=== PATIENT | male | born 1935 | race Caucasian/White ===

== ENCOUNTER 2017-01-02 23:07 | Inpatient (IN) ==
[2017-01-02] MEDS ORDERED: 0.9 % Sodium Chloride 1,000 ML IVC ONE (23:36)
--- NOTE | 2017-01-02 23:45 | Emergency Department Note ---
Disposition Clinical Impression: Lower gastrointestinal hemorrhage Anemia Qualifiers: Anemia type: other cause Other causes of anemia: other cause, not classified Qualified Code(s): D64.89 - Other specified anemias Disposition: Admitted As Inpatient Condition: Good Time of Disposition: 00:56 General Adult HPI - General Chief complaint: ED GI Bleed Stated complaint: Rectal Bleeding Time Seen by Provider: 01/02/17 23:21 Source: patient Limitations: no limitations Nursing Notes Reviewed: Yes Vital Signs Reviewed: Yes - History of Present Illness HPI Narrative: A recent history of a polyp removal at [facility] with Dr. Pretty. States a couple days after that he started having bright red blood per his rectum. He was then admitted to [facility] for 5 days. He was released this morning with no GI bleeding for the past 2 days. He took a nap whenever he woke up from his nap he was the bathroom and had bright red blood coming out of his rectum. Please see past several blood clots that they describe built like "beef liver." Pain Scale: 0 - Related Data Allergies Allergy/AdvReac Type Severity Reaction Status Date / Time Tetracycline AdvReac Hives Verified 01/03/17 03:06 All systems ED: reviewed and negative except as stated. Constitutional: Reports: weakness (When he stands up and tries to walk.). Denies: fever, chills Cardiovascular: Denies: chest pain, palpitations, dyspnea on exertion, edema, syncope Respiratory: Denies: cough, dyspnea, wheezes Gastrointestinal: Reports: hematochezia. Denies: abdominal pain, nausea, vomiting, diarrhea, hematemesis, melena Genitourinary: Denies: urgency, dysuria, frequency, hematuria Musculoskeletal: Denies: back pain, neck pain, arthralgia, myalgia Integumentary: Denies: rash, abrasion Neurological: Reports: weakness. Denies: headache, numbness, confusion, abnormal gait Past Medical History - Past Medical History Medical history: Reports: atrial fibrillation, CHF, COPD, diabetes, renal disease Psychiatric history: Reports: no psych history - Social History Smoking Status: Never smoker Smokeless Tobacco Status: No Alcohol use: Reports: none Drug use: Reports: none Physical Exam - General Limitations: no limitations General appearance: alert, in no apparent distress - Head Head exam: atraumatic, normocephalic, normal inspection - Eye Eye exam: Present: normal appearance, PERRL, EOMI. Absent: scleral icterus - ENT ENT exam: normal exam, normal oropharynx, mucous membranes moist - Neck Neck exam: Present: normal inspection, full ROM, trachea midline. Absent: tenderness - Chest Chest inspection: Present: normal inspection, symmetric chest wall rise. Absent : tenderness - Respiratory Respiratory exam: Present: normal lung sounds bilaterally. Absent: respiratory distress - Cardiovascular Cardiovascular exam: Present: regular rate, irregular rhythm (History of A. fib. ), normal heart sounds - Abdominal Exam Abdominal exam: Present: soft, Non-Tender, normal bowel sounds. Absent: tenderness, distention, guarding, rebound, rigidity, organomegaly, Zavala's sign , Rovsing's sign, tenderness at McBurney's Point - Rectal Exam Land Conservation Specialist present during exam: Yes Rectal exam: Present: normal rectal tone, heme (+) stool, bloody stool. Absent : tenderness - Extremities Exam Extremities exam: Present: normal inspection, full ROM, normal capillary refill. Absent: tenderness, pedal edema - Back Exam Back exam: Present: normal inspection, full ROM. Absent: tenderness, CVA tenderness (R), CVA tenderness (L) - Neurological Exam Neurological exam: Present: alert, oriented X3, normal gait - Psychiatric Psychiatric exam: Present: normal affect, normal mood - Skin Skin exam: Present: warm, dry, intact, normal color. Absent: rash, diaphoresis , erythema Course Course Narrative: She has a recent history of a polyp removal at [facility]. States 1 week ago he started having bright red blood per his rectum he was seen at [facility]. He was admitted to the hospital for 5 days. states that last night and yesterday bleeding had stopped. He was released this morning. States that he had been laying around today with no problems. He states this evening he got up to go to the bathroom he noticed he had blood coming down his legs. The states that he is passing red clots that looked like "beef liver." He is feeling weak whenever he gets up. He has no exertional dyspnea. He denies any chest pain nausea vomiting diarrhea or abdominal pain. His abdomen is soft nontender on palpation. He is well appearing however looks tired. Urinating distress. We will get basic lab work, and I will do a fecal occult blood test. Will also give patient a fluid bolus. - Reevaluation(s) Reevaluation #1: I discussed at length with the patient and his that they need to be by the same surgeon that did his initial surgery. They are very frustrated with [facility] and state they would like to stay here. I will discuss this with our surgeon sales applications engineer. Time: 00:16 Reevaluation #2: Dr. Pearson agreed to see the patient while he is here. Patient is an 8.7. The states that this morning his hemoglobin was 9. He did have bright red blood on rectal exam. He is resting comfortably in bed with no complaints at this time. We will patient to the hospital. - Consultations Consultation #1: Spoke with Dr Pearson. He agreed to have the Pt admitted to the medicine service and they could consult him. Time: 00:54 Vital Signs Temperature 95.6 F L 01/02/17 23:12 Pulse Rate 117 01/02/17 23:12 Respiratory Rate 22 01/02/17 23:12 Blood Pressure 127/71 01/02/17 23:12 O2 Sat by Pulse Oximetry 97 01/02/17 23:12 Temperature 98.2 F 01/03/17 03:05 Pulse Rate 85 01/03/17 03:05 Respiratory Rate 15 01/03/17 03:05 Blood Pressure 160/81 01/03/17 03:05 O2 Sat by Pulse Oximetry 100 01/03/17 03:05 Oxygen Delivery Oxygen Delivery Nasal Cannula Medical Decision Making - Medical Records Medical records reviewed: Yes I reviewed the patient's medical records. - Lab Data Lab results reviewed: Yes I reviewed the patient's lab results. Result diagrams: 01/02/17 23:50 01/02/17 23:50 Lab Results 01/02/17 01/02/17 01/02/17 Range/Units 23:50 23:50 23:50 WBC 11.6 H (4.3-11.1) K/mcL RBC 3.02 L (4.19-5.50) M/mcL Hgb 8.7 L (12.9-16.9) g/dL Hct 27.7 L (37.5-50.1) % MCV 91.7 (83.0-100.0) fL MCH 28.8 (28.0-33.3) pg MCHC 31.4 L (31.6-35.5) g/dL RDW 13.5 (11.5-14.5) % Plt Count 198 (140-400) K/mcL MPV 11.7 (9.4-12.4) fL Immature Gran % 0.8 (0-4) % Seg Neutrophils % 74.7 % Lymphocytes % 12.6 % Monocytes % 8.8 % Eosinophils % 2.6 % Basophils % 0.5 % Neutrophils # 8.7 (1.6-8.9) K/mcL Lymphocytes # 1.5 (0.6-4.6) K/mcL Monocytes # 1.0 (0.0-1.3) K/mcL Eosinophils # 0.3 (0.0-0.6) K/mcL Basophils # 0.1 (0.0-0.2) K/mcL Nucleated RBCs/100 WBC 0.2 H (0) /100 WBC PT 12.6 H (9.4-12.1) Seconds INR 1.2 APTT 25.3 L (26.0-36.0) Seconds Sodium 141 (136-145) mEq/L Potassium 4.4 (3.5-4.5) mEq/L Chloride 108 (98-109) mEq/L Carbon Dioxide 26 (19-29) mEq/L BUN 23 (8-26) mg/dL Creatinine 1.42 H (0.72-1.25) mg/dL Est GFR ( Amer) 58 L (> 60) Est GFR (Non-Af Amer) 48 L (> 60) BUN/Creatinine Ratio 16 (6-26) Glucose 185 H (70-99) mg/dL Calculated Osmolality 300 (280-300) Calcium 8.6 (8.6-10.8) mg/dL Total Bilirubin 0.4 (0.2-1.2) mg/dL AST 16 (5-34) Units/L ALT 13 (0-55) Units/L Alkaline Phosphatase 59 (38-126) Units/L Serum Total Protein 6.0 (6.0-8.3) g/dL Albumin 3.1 L (3.5-5.0) g/dL Globulin 2.9 (2.4-3.5) g/dL Albumin/Globulin Ratio 1.1 (1.1-2.2) Stool Occult Blood (Negative) Blood Type Antibody Screen 01/02/17 01/03/17 Range/Units 23:50 00:12 WBC (4.3-11.1) K/mcL RBC (4.19-5.50) M/mcL Hgb (12.9-16.9) g/dL Hct (37.5-50.1) % MCV (83.0-100.0) fL MCH (28.0-33.3) pg MCHC (31.6-35.5) g/dL RDW (11.5-14.5) % Plt Count (140-400) K/mcL MPV (9.4-12.4) fL Immature Gran % (0-4) % Seg Neutrophils % % Lymphocytes % % Monocytes % % Eosinophils % % Basophils % % Neutrophils # (1.6-8.9) K/mcL Lymphocytes # (0.6-4.6) K/mcL Monocytes # (0.0-1.3) K/mcL Eosinophils # (0.0-0.6) K/mcL Basophils # (0.0-0.2) K/mcL Nucleated RBCs/100 WBC (0) /100 WBC PT (9.4-12.1) Seconds INR APTT (26.0-36.0) Seconds Sodium (136-145) mEq/L Potassium (3.5-4.5) mEq/L Chloride (98-109) mEq/L Carbon Dioxide (19-29) mEq/L BUN (8-26) mg/dL Creatinine (0.72-1.25) mg/dL Est GFR ( Amer) (> 60) Est GFR (Non-Af Amer) (> 60) BUN/Creatinine Ratio (6-26) Glucose (70-99) mg/dL Calculated Osmolality (280-300) Calcium (8.6-10.8) mg/dL Total Bilirubin (0.2-1.2) mg/dL AST (5-34) Units/L ALT (0-55) Units/L Alkaline Phosphatase (38-126) Units/L Serum Total Protein (6.0-8.3) g/dL Albumin (3.5-5.0) g/dL Globulin (2.4-3.5) g/dL Albumin/Globulin Ratio (1.1-2.2) Stool Occult Blood Positive A (Negative) Blood Type O POSITIVE Antibody Screen NEGATIVE - EKG Data EKG #1 EKG attestation: Yes I reviewed and interpreted this EKG. EKG results narrative: Atrial fibrillation at a rate of 91. Urine esterase is 77. QT is 368. No signs of acute ischemia. No previous EKG to compare to.
--- NOTE | 2017-01-02 23:49 | Emergency Department Note ---
START Narrative - START START: For this encounter, I have reviewed the resident, SOCIAL WORKER MASTERS, or PA documentation, treatment plan, and medical decision making; and I have had face to face time with this patient. 81 yo male presents with rectal bleeding. Recent polyp removal at [facility] one month ago. Returned five days ago for rectal bleeding and stayed five days. pt states he was discharged earlier in the day. Patient states he developed diarrhea with bright red blood per rectum which covered his bed, bathroom, bedroom floor prior to arrival. Patient states that he felt lightheaded prior to arrival. On rectal exam the patient has hematochezia. The patient be transferred to [facility] for further care and evaluation as this is where he had his surgery performed. Patient adamantly refused and did not want to be transferred. He wished to remain at [facility] for continuation of his care. Patient was admitted to the hospitalist after speaking with Dr. Pearson.
[2017-01-02 23:56] LABS: Basophils # 0.1 K/mcL (0.0-0.2); Basophils % 0.5 %; Eosinophils # 0.3 K/mcL (0.0-0.6); Eosinophils % 2.6 %; Hematocrit 27.7 % (37.5-50.1); Hemoglobin 8.7 g/dL (12.9-16.9); Immature Granulocytes % 0.8 % (0-4); Lymphocytes # 1.5 K/mcL (0.6-4.6); Lymphocytes % 12.6 %; Mean Corpuscular HGB Conc 31.4 g/dL (31.6-35.5); Mean Corpuscular Hemoglobin 28.8 pg (28.0-33.3); Mean Corpuscular Volume 91.7 fL (83.0-100.0); Mean Platelet Volume 11.7 fL (9.4-12.4); Monocytes % 8.8 %; Neutrophils # 8.7 K/mcL (1.6-8.9); Nucleated Red Blood Cells 0.2 /100 WBC (0); Platelet Count 198 K/mcL (140-400); Red Blood Count 3.02 M/mcL (4.19-5.50); Red Cell Distribution Width 13.5 % (11.5-14.5); Segmented Neutrophils % 74.7 %
[2017-01-03 00:14] LABS: Albumin 3.1 g/dL (3.5-5.0); Albumin/Globulin Ratio 1.1 (1.1-2.2); Bilirubin,Total 0.4 mg/dL (0.2-1.2); Calcium 8.6 mg/dL (8.6-10.8); Globulin 2.9 g/dL (2.4-3.5); Potassium 4.4 mEq/L (3.5-4.5)
[2017-01-03 00:16] LABS: INR 1.2; Prothrombin Time 12.6 Seconds (9.4-12.1)
[2017-01-03 00:19] LABS: Activated Partial Thrombo Time 25.3 Seconds (26.0-36.0)
[2017-01-03 04:50] LABS: Bilirubin,Urine Negative (Negative); Blood,Urine Negative (Negative); Clarity,Urine Cloudy (Clear); Color,Urine Yellow (Yellow); Glucose,Urine (UA) Normal (Normal); Ketones,Urine Negative (Negative); Leukocyte Esterase,Urine Moderate (Negative); Nitrite,Urine Negative (Negative); Protein,Urine Negative (Neg-Trace); Specific Gravity,Urine 1.012 (1.010-1.025); Urobilinogen,Urine Normal (Normal)
[2017-01-03 04:53] LABS: Bacteria,Urine Many per hpf (None-Few); Hyaline Casts,Urine None Seen per lpf (None-Few); RBC,Urine 0-3 per hpf (0-3); Squamous Epithelial Cell,Urine Moderate per lpf (None-Few); WBC,Urine 50-100 per hpf (0-3)
[2017-01-03] MEDS ORDERED: Naloxone 0.4 MG/ML INJ IVP PRN (08:06)
[2017-01-03] MEDS ORDERED: Ondansetron 4 MG/2 ML VIAL IVP PRN (08:06)
[2017-01-03] MEDS ORDERED: Dextrose Gel 15 GM PO PRN ×4 (08:13→18:33)
[2017-01-03] MEDS ORDERED: D5% in Water 1,000 ML IV PRN ×2 (08:13→18:33)
[2017-01-03] MEDS ORDERED: *HR* Dextrose 50 % in Water (Syg) 50 ML SYRINGE IVP PRN ×2 (08:13→18:33)
[2017-01-03] MEDS: 0.9 % Sodium Chloride 1,000 ML IVC SCH ×2 (08:55→23:00)
[2017-01-03] MEDS: Pantoprazole 40 MG VIAL IVP SCH ×2 (08:55→17:35)
[2017-01-03] MEDS: *HR* Morphine 2 MG/ML SYRINGE IVP PRN ×2 (09:03→18:39)
[2017-01-03 09:08] LABS: Basophils # 0.1 K/mcL (0.0-0.2); Basophils % 0.5 %; Eosinophils # 0.2 K/mcL (0.0-0.6); Hematocrit 24.6 % (37.5-50.1); Hemoglobin 7.8 g/dL (12.9-16.9); Immature Granulocytes % 0.7 % (0-4); Lymphocytes # 2.3 K/mcL (0.6-4.6); Lymphocytes % 23.2 %; Mean Corpuscular HGB Conc 31.7 g/dL (31.6-35.5); Mean Corpuscular Hemoglobin 29.2 pg (28.0-33.3); Mean Corpuscular Volume 92.1 fL (83.0-100.0); Mean Platelet Volume 12.4 fL (9.4-12.4); Monocytes # 0.8 K/mcL (0.0-1.3); Monocytes % 8.3 %; Neutrophils # 6.5 K/mcL (1.6-8.9); Nucleated Red Blood Cells 0.2 /100 WBC (0); Platelet Count 161 K/mcL (140-400); Red Blood Count 2.67 M/mcL (4.19-5.50); Red Cell Distribution Width 13.8 % (11.5-14.5); Segmented Neutrophils % 65.3 %
[2017-01-03 09:12] LABS: Alanine Aminotransferase 12 Units/L (0-55); Albumin 2.8 g/dL (3.5-5.0); Albumin/Globulin Ratio 1.1 (1.1-2.2); Alkaline Phosphatase 58 Units/L (38-126); Aspartate Amino Transferase 13 Units/L (5-34); BUN/Creatinine Ratio 17 (6-26); Bilirubin,Total 0.5 mg/dL (0.2-1.2); Blood Urea Nitrogen 21 mg/dL (8-26); Calcium 7.8 mg/dL (8.6-10.8); Carbon Dioxide 27 mEq/L (19-29); Chloride 109 mEq/L (98-109); Globulin 2.6 g/dL (2.4-3.5); Glucose 131 mg/dL (70-99); Osmolality,Calculated 301 (280-300); Potassium 3.8 mEq/L (3.5-4.5); Sodium 143 mEq/L (136-145); Total Protein 5.4 g/dL (6.0-8.3); eGFR For African Americans > 60 (> 60); eGFR For Non-African Americans 55 (> 60)
[2017-01-03 09:39] LABS: % Iron Saturation 8 % (20-55); Iron 20 mcg/dL (65-175); Transferrin 187 mg/dL (174-364)
--- NOTE | 2017-01-03 10:13 | General Surgery Consult Note ---
Date of Encounter: 01/03/17 Time of Encounter: 10:00 Assessment and Plan (1) Lower gastrointestinal hemorrhage Current Visit: Yes Status: Acute Bleeding scan Obtain records from [facility] IV fluids and resuscitation Continue to hold coumadin Monitor Hgb/Hct (2) Acute blood loss anemia Current Visit: Yes Status: Acute Monitor Hgb/Hct History of Present Illness Consult date: 01/03/17 Reason for consult: other (rectal bleeding) Requesting physician: Paul Hardy History of present illness: Mr. Haynes is a very pleasant 81 year old male who reported to the ED last night with complaints of rectal bleeding. He states that he is s/p a colonoscopy with polypectomy with Dr. Pretty on 12/16/16 at [facility]. He remained off of his coumadin for 13 days (takes for atrial fibrillation). He states that when he restarted his coumadin he began to have rectal bleeding. He presented back to [facility] with compaints of large amounts of bright red blood per rectum. He was given FFP for revearsal of coumadin. He was admitted there for the past 5-6 days. He states that the bleeding did stop and that he did have a normal, brown bowel movement yesterday morning. He was discharge to home yesterday morning from [facility]. He states that shortly after returning home, he began to have large amounts of rectal bleeding (bright red). He admits to feeling light headed and dizzy. Denies any syncopal episodes. Denies any shortness of breath of chest pains. He states that he has had multiple colonoscopies over the past 4 years for a recurrent polyp in the colon. We have been asked to see and evaluate the patient for endoscopy evaluation. 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), CHF, COPD, coronary artery disease, diabetes, GERD, hypertension, renal disease (stage 3), thyroid disease (hypothyroidism) Psychiatric history: no psych history - Past Surgical History Surgical History: cataract, other (colonoscopy (last 12/16/16), multiple over the past 4 years; cyst removed from head and groin) - Social History Smoking Status: Never smoker Smokeless Tobacco Status: No Alcohol use: none Drug use: none Current living situation: Home - Independent Activity Level: Independent ambulation - Family History Mother Living Status: Age at : 70 Hx Family Cardiac Disorders: Yes Brother Hx Family Cancer: Yes Father Living Status: Age at : 89 Hx Family Cancer: Yes Medications and Allergies Allopurinol [Zyloprim 300 MG] 300 mg PO DAILY 01/03/17 [History] Digoxin [Lanoxin] 0.125 mg PO QMWF 01/03/17 [History] Docusate [Colace] 100 mg PO BID 01/03/17 [History] Ezetimibe 10 mg PO DAILY 01/03/17 [History] Finasteride [Proscar] 5 mg PO DAILY 01/03/17 [History] Furosemide [Lasix] 40 mg PO BID 01/03/17 [History] Insulin ASPART [Novolog Flexpen] 12 unit SQ TID 01/03/17 [History] Insulin DETEMIR [Levemir Flextouch] 100 unit SQ QAM 01/03/17 [History] Insulin DETEMIR [Levemir] 0 unit SQ HS 01/03/17 [History] Latanoprost [Xalatan] 2.5 ml BOTH EYES HS 01/03/17 [History] Levothyroxine [Synthroid] 150 mcg PO DAILY 01/03/17 [History] Metolazone 2.5 mg PO QAM 01/03/17 [History] Metoprolol [Lopressor] 50 mg PO BID 01/03/17 [History] OxyCODONE/APAP 5/325 [Percocet 5/325 MG] 1 tab PO Q4HR PRN 01/03/17 [History] Potassium Chloride [K-Tab ER] 40 meq PO TID 01/03/17 [History] Tamsulosin [Flomax] 0.4 mg PO HS 01/03/17 [History] Valsartan [Diovan] 320 mg PO DAILY 01/03/17 [History] Allergies Tetracycline Adverse Reaction (Verified 01/03/17 03:06) Hives Review of Systems All systems PM: reviewed and no additional remarkable complaints except as stated (in the HPI) All systems PM: A 10-system review of systems was performed and is negative for pertinent findings except as documented above in the HPI. General Surgery Exam Initial Vital Signs Temp Pulse Resp BP Pulse Ox 95.6 F L 117 22 127/71 97 01/02/17 23:12 01/02/17 23:12 01/02/17 23:12 01/02/17 23:12 01/02/17 23:12 - General physical appearance well developed, well nourished, no distress, no pain - Eyes normal ocular movement - ENT normal mucosa, atraumatic, normocephalic - Neck trachea midline - Respiratory normal expansion, normal respiratory effort, clear to auscultation - Cardiovascular Cardiovascular exam: Present: irregular rhythm (atrial fibrillation) - Abdomen Abdomen general surgery: Present: bowel sounds present, soft, non tender - Integumentary Integumentary general surgery: Present: warm and dry - Neurologic Present: CN 2-12 grossly intact - Musculoskeletal Present: normal gait, normal posture - Psychiatric Psychiatric general surgery: Present: appropriate, oriented to person, oriented to place, oriented to time, speech is normal, memory intact Exam Initial Vital Signs Temp Pulse Resp BP Pulse Ox 95.6 F L 117 22 127/71 97 01/02/17 23:12 01/02/17 23:12 01/02/17 23:12 01/02/17 23:12 01/02/17 23:12 Results - Labs 01/03/17 08:29 01/03/17 08:29 Abnormal lab results RBC 2.67 M/mcL (4.19-5.50) L 01/03/17 08:29 Hgb 7.8 g/dL (12.9-16.9) L 01/03/17 08:29 Hct 24.6 % (37.5-50.1) L 01/03/17 08:29 Nucleated RBCs/100 WBC 0.2 /100 WBC (0) H 01/03/17 08:29 PT 12.6 Seconds (9.4-12.1) H 01/02/17 23:50 APTT 25.3 Seconds (26.0-36.0) L 01/02/17 23:50 Creatinine 1.26 mg/dL (0.72-1.25) H 01/03/17 08:29 Est GFR (Non-Af Amer) 55 (> 60) L 01/03/17 08:29 Glucose 131 mg/dL (70-99) H 01/03/17 08:29 Calculated Osmolality 301 (280-300) H 01/03/17 08:29 Calcium 7.8 mg/dL (8.6-10.8) L 01/03/17 08:29 Iron 20 mcg/dL (65-175) L 01/03/17 08:29 % Saturation 8 % (20-55) L 01/03/17 08:29 Serum Total Protein 5.4 g/dL (6.0-8.3) L 01/03/17 08:29 Albumin 2.8 g/dL (3.5-5.0) L 01/03/17 08:29 Urine Clarity Cloudy (Clear) A 01/03/17 04:41 Ur Leukocyte Esterase Moderate (Negative) H 01/03/17 04:41 Urine Microscopic WBC 50-100 per hpf (0-3) H 01/03/17 04:41 Ur Squamous Epith Cells Moderate per lpf (None-Few) H 01/03/17 04:41 Urine Bacteria Many per hpf (None-Few) H 01/03/17 04:41 Ur Culture Indicated? YES (NO) A 01/03/17 04:41 Stool Occult Blood Positive (Negative) A 01/03/17 00:12 Diabetes panel 01/03/17 Range/Units 08:29 Sodium 143 (136-145) mEq/L Potassium 3.8 (3.5-4.5) mEq/L Chloride 109 (98-109) mEq/L Carbon Dioxide 27 (19-29) mEq/L BUN 21 (8-26) mg/dL Creatinine 1.26 H (0.72-1.25) mg/dL Glucose 131 H (70-99) mg/dL Calcium 7.8 L (8.6-10.8) mg/dL AST 13 (5-34) Units/L ALT 12 (0-55) Units/L Alkaline Phosphatase 58 (38-126) Units/L Albumin 2.8 L (3.5-5.0) g/dL Calcium panel 01/03/17 Range/Units 08:29 Calcium 7.8 L (8.6-10.8) mg/dL Albumin 2.8 L (3.5-5.0) g/dL Pituitary panel 01/03/17 Range/Units 08:29 Sodium 143 (136-145) mEq/L Potassium 3.8 (3.5-4.5) mEq/L Chloride 109 (98-109) mEq/L Carbon Dioxide 27 (19-29) mEq/L BUN 21 (8-26) mg/dL Creatinine 1.26 H (0.72-1.25) mg/dL Glucose 131 H (70-99) mg/dL Calcium 7.8 L (8.6-10.8) mg/dL Adrenal panel 01/03/17 Range/Units 08:29 Sodium 143 (136-145) mEq/L Potassium 3.8 (3.5-4.5) mEq/L Chloride 109 (98-109) mEq/L Carbon Dioxide 27 (19-29) mEq/L BUN 21 (8-26) mg/dL Creatinine 1.26 H (0.72-1.25) mg/dL Glucose 131 H (70-99) mg/dL Calcium 7.8 L (8.6-10.8) mg/dL Total Bilirubin 0.5 (0.2-1.2) mg/dL AST 13 (5-34) Units/L ALT 12 (0-55) Units/L Alkaline Phosphatase 58 (38-126) Units/L Albumin 2.8 L (3.5-5.0) g/dL All other labs normal. Consult Discharge Plan - Plan Referrals: Major Gonsalves DO [Primary Care Provider] - - Attending Attestation I examined this patient and my medical decision-making was reviewed with the UNION LABORER/PA/Advanced Practice Nurse/Resident Physician. I agree with the documented findings, disposition and treatment plan as described except to the extent set forth below.
[2017-01-03 10:30] LABS: Ferritin 76 ng/ml (22-275)
[2017-01-03 14:41] LABS: Hemoglobin 7.8 g/dL (12.9-16.9)
[2017-01-03] MEDS: Insulin LISPRO 300 UNITS/3 ML VIAL SQ SCH ×2 (15:48→17:31)
--- NOTE | 2017-01-03 18:05 | Electrocardiograph Report ---
[place] [id number] Test Date: 2017-01-02 Pat Name: Marcos Haynes Department: 104 Room: 3A Gender: M Server Developer: : [id number] Requested By: Mary June Order Number: [id number] Reading MD: Shelley Guzman Measurements Intervals [place] Rate: 91 P: NV: 0 QRS: -20 QRSD: 97 T: -29 QT: 368 QTc: 416 Interpretive Statements ATRIAL FIBRILLATION VOLTAGE CRITERIA FOR LVH NONSPECIFIC T-WAVE ABNORMALITY Electronically Signed On 01-03-2017 18:03:36 EST by Shelley Guzman
[2017-01-03 20:13] LABS: Hematocrit 23.7 % (37.5-50.1); Hemoglobin 7.6 g/dL (12.9-16.9)
--- NOTE | 2017-01-03 20:46 | Internal Med History&Physical ---
Date of Encounter: 01/03/17 Time of Encounter: 09:00 Assessment and Plan (1) Chronic diastolic heart failure Current visit: Yes Status: Acute No evidence of acute exacerbation. We will monitor clinically. Avoid excessive fluid hydration. (2) Type 2 diabetes mellitus Current visit: Yes Status: Acute Low-dose insulin sliding scale. Qualifiers: Diabetes mellitus complication status: without complication Diabetes mellitus retirement insulin use: with retirement use Qualified Code(s): E11.9 - Type 2 diabetes mellitus without complications; Z79.4 - long term care pharmacist (current) use of insulin (3) CKD (chronic kidney disease) stage 3, GFR 30-59 ml/min Current visit: Yes Status: Acute Monitor kidney function. Avoid nephrotoxins. (4) Chronic atrial fibrillation Current visit: Yes Status: Acute Rate control with IV metoprolol as needed. (5) DVT prophylaxis Current visit: Yes Status: Acute SCDs (6) Acute blood loss anemia Current visit: Yes Status: Acute Transfuse 2 units PRBC. Monitor hemoglobin and hematocrit. (7) Lower gastrointestinal hemorrhage Current visit: Yes Status: Acute Gen. surgery consult. Nothing by mouth. Plan for colonoscopy. He is at high risk for morbidity and complications due to clinically significant GI bleeding and multiple associated comorbidities. Internal Medicine - H&P: HPI Chief complaint: rectal bleeding Admitted From: Emergency Dept Plans for Post Hospital Care: Home History of present illness: Mr. Haynes is a 81 year old male with multiple medical comorbidities including hypertension, diabetes, congestive heart failure, atrial fibrillation previously on Coumadin, diabetes and BPH who presented to the hospital for rectal bleeding. He also has a history of colon cancer that was resected 4 years ago. 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 He had a recent colonoscopy and biopsy done on December 16. His warfarin was started 3 days after discharge and he had been okay for 2 weeks and then he had massive rectal bleed that was 1 week ago. He was at a time readmitted to [facility] and he received plasma and IV fluids. Patient's says at that time he did not have a repeat colonoscopy. He was discharged home after 5 day hospitalization and yesterday evening he again had several episodes of massive blood per rectum described by the patient's as "looked like beef liver". Patient reports some associated rectal pain and dizziness no chest pain shortness of breath nausea vomiting or diarrhea. Past medical history as above Family history positive for prostate cancer in the patient's father and kidney cancer in the patient's brother Social history patient is a former smoker quit 30 years ago, denies alcohol and drug use Past Med Surg Social Fam HX - Past Medical History Medical history: atrial fibrillation, cardiomyopathy (moderate diastolic dysfunction with diastolic HF), CHF, COPD, coronary artery disease, diabetes, GERD, hypertension, renal disease (stage 3), thyroid disease (hypothyroidism) Psychiatric history: no psych history - Past Surgical History Surgical History: cataract, other (colonoscopy (last 12/16/16), multiple over the past 4 years; cyst removed from head and groin) - Social History Smoking Status: Never smoker Smokeless Tobacco Status: No Alcohol use: none Drug use: none - Family History Mother Living Status: Age at : 70 Hx Family Cardiac Disorders: Yes Brother Hx Family Cancer: Yes Father Living Status: Age at : 89 Hx Family Cancer: Yes Internal Medicine - H&P: Meds Allopurinol [Zyloprim 300 MG] 300 mg PO DAILY 01/03/17 [History] Digoxin [Lanoxin] 0.125 mg PO MOWEFR 01/03/17 [History] Docusate [Colace] 100 mg PO BID 01/03/17 [History] Ezetimibe 10 mg PO DAILY 01/03/17 [History] Finasteride [Proscar] 5 mg PO DAILY 01/03/17 [History] Furosemide [Lasix] 40 mg PO BID 01/03/17 [History] Insulin ASPART [Novolog Flexpen] 12 unit SQ TID 01/03/17 [History] Insulin DETEMIR [Levemir Flextouch] 50 unit SQ QAM 01/03/17 [History] Insulin DETEMIR [Levemir] 45 unit SQ HS 01/03/17 [History] Latanoprost [Xalatan] 1 drop BOTH EYES HS 01/03/17 [History] Levothyroxine [Synthroid] 150 mcg PO DAILY 01/03/17 [History] Lidocaine [Recticare] 1 appl RC Q6H PRN 01/03/17 [History] Metolazone 2.5 mg PO QAM 01/03/17 [History] Metoprolol [Lopressor] 50 mg PO BID 01/03/17 [History] OxyCODONE/APAP 5/325 [Percocet 5/325 MG] 1 tab PO Q4HR PRN 01/03/17 [History] Potassium Chloride [K-Tab ER] 40 meq PO BID 01/03/17 [History] Tamsulosin [Flomax] 0.4 mg PO HS 01/03/17 [History] Valsartan [Diovan] 320 mg PO DAILY 01/03/17 [History] Allergies Tetracycline Adverse Reaction (Verified 01/03/17 03:06) Hives All Systems PM: A 10-system review of systems was performed and is negative for pertinent findings except as documented above in the HPI. - Constitutional Vitals: Temp Pulse Resp BP Pulse Ox 97.6 F 104 16 129/81 98 01/03/17 13:58 01/03/17 13:58 01/03/17 13:58 01/03/17 13:58 01/03/17 13:58 General appearance: Present: A&O X 3 - Eye Eye exam: Present: PERRL, conjuntiva pink, sclera anicteric Pupils: Present: PERRL - Respiratory Respiratory exam: Present: CTAB. Absent: accessory muscle use, rales, rhonchi, wheezes - Cardiovascular Cardiovascular exam: Present: RRR, +S1, +S2. Absent: diastolic murmur, gallop, rubs, systolic murmur - GI/Abdominal GI/Abdominal exam: Present: normal bowel sounds, soft, no peritoneal signs. Absent: distended, tenderness Additional comments: Rectal exam was dry blood in the rectal area, no masses, no external lesions, small internal hemorrhoids. No active bleeding. - Extremities Exam Extremities exam: Present: pedal edema, warm, radial pulses palpable and symetrical. Absent: calf tenderness, cyanotic - Neurological Exam Neurological exam: Present: CN II-XII intact, oriented X3, no focal deficits. Absent: pronater drift, facial droop, speech deficit - Skin Skin exam: Present: dry, intact Internal Med - H&P Results - Labs CBC & Chem 7: 01/03/17 19:56 01/03/17 08:29 Labs: Short CBC 01/03/17 01/03/17 01/03/17 Range/Units 08:29 14:07 19:56 WBC 9.9 (4.3-11.1) K/mcL Hgb 7.8 L 7.8 L 7.6 L (12.9-16.9) g/dL Hct 24.6 L 25.0 L 23.7 L (37.5-50.1) % Plt Count 161 (140-400) K/mcL Neutrophils # 6.5 (1.6-8.9) K/mcL BMP 01/03/17 08:29 Sodium 143 Potassium 3.8 Chloride 109 Carbon Dioxide 27 BUN 21 Creatinine 1.26 H Glucose 131 H Calcium 7.8 L Liver Function 01/03/17 Range/Units 08:29 Total Bilirubin 0.5 (0.2-1.2) mg/dL AST 13 (5-34) Units/L ALT 12 (0-55) Units/L Alkaline Phosphatase 58 (38-126) Units/L Albumin 2.8 L (3.5-5.0) g/dL - Impressions ITS Impressions GI Bleed Scan Nuclear Medicine 01/03/17 11:17 IMPRESSION: No evidence of active GI bleeding during acquisition. RECOMMENDATIONS: If the patient shows hemodynamic signs of an active bleed in the next 20 hours, additional images can be acquired. D/ / Juan Nance MD / Juan Nance MD Interpreting Provider: Juan Nance MD
[2017-01-03] MEDS ORDERED: 0.9 % Sodium Chloride 250 ML ONE (22:18)
[2017-01-04] MEDS ORDERED: 0.9 % Sodium Chloride 250 ML ONE (02:28)
[2017-01-04] MEDS ORDERED: RECTICARE RC PRN (02:58)
[2017-01-04] MEDS: Pantoprazole 40 MG VIAL IVP SCH ×2 (05:30→17:59)
[2017-01-04 08:22] LABS: Basophils # 0.1 K/mcL (0.0-0.2); Basophils % 0.6 %; Eosinophils # 0.3 K/mcL (0.0-0.6); Eosinophils % 3.6 %; Hematocrit 28.2 % (37.5-50.1); Hemoglobin 9.1 g/dL (12.9-16.9); Immature Granulocytes % 0.3 % (0-4); Lymphocytes # 1.6 K/mcL (0.6-4.6); Lymphocytes % 18.2 %; Mean Corpuscular HGB Conc 32.3 g/dL (31.6-35.5); Mean Corpuscular Hemoglobin 29.4 pg (28.0-33.3); Mean Platelet Volume 11.8 fL (9.4-12.4); Monocytes # 0.7 K/mcL (0.0-1.3); Monocytes % 8.1 %; Neutrophils # 6.2 K/mcL (1.6-8.9); Nucleated Red Blood Cells 0.2 /100 WBC (0); Platelet Count 185 K/mcL (140-400); Red Cell Distribution Width 13.9 % (11.5-14.5); Segmented Neutrophils % 69.2 %
[2017-01-04 08:34] LABS: BUN/Creatinine Ratio 13 (6-26); Blood Urea Nitrogen 14 mg/dL (8-26); Calcium 7.8 mg/dL (8.6-10.8); Carbon Dioxide 24 mEq/L (19-29); Chloride 110 mEq/L (98-109); Glucose 131 mg/dL (70-99); Osmolality,Calculated 296 (280-300); Potassium 4.1 mEq/L (3.5-4.5); Sodium 142 mEq/L (136-145); eGFR For African Americans > 60 (> 60); eGFR For Non-African Americans > 60 (> 60)
[2017-01-04] MEDS: Valsartan 160 MG TABLET PO SCH (09:34)
[2017-01-04] MEDS: ZETIA 10MG PO SCH (09:35)
[2017-01-04] MEDS: Finasteride 5 MG TABLET PO SCH (09:35)
[2017-01-04] MEDS: *HR* Morphine 2 MG/ML SYRINGE IVP PRN (09:36)
[2017-01-04] MEDS ORDERED: Polyethylene Glycol 3350 255 GM POWDER PO ONE (12:52)
--- NOTE | 2017-01-04 17:13 | General Surgery Progress Note ---
Date of Encounter: 01/04/17 Time of Encounter: 10:45 - Assessment and Plan (1) Lower gastrointestinal hemorrhage Current Visit: Yes Status: Acute Continue to hold coumadin. Continue IV fluids. Miralax bowel prep tonight. Colonoscopy in the morning. Clear liquids. NPO at midnight. (2) Anemia Current Visit: Yes Status: Acute Stable this morning with hemoglobin of 9.1. No active bleeding overnight. Continue to monitor. Qualifiers: Anemia type: other cause Other causes of anemia: other cause, not classified Qualified Code(s): D64.89 - Other specified anemias Subjective Patient reports: no new complaints, pain is less, voiding w/o difficulty, flatus , no bowel movement, afebrile Narrative: The patient states he had a small amount of BRBPR last night, but has not had any bleeding overnight or this morning. He states he is not currently having much pain, and feels that it is well controlled at this time. Objective Vital Signs - Last 8 Hours Temp Pulse Resp BP Pulse Ox 01/04/17 15:55 98.2 F 105 18 149/81 98 01/04/17 10:34 98.6 F 93 16 156/89 96 Intake and Output 01/04/17 01/04/17 01/04/17 07:59 15:59 23:59 Intake Total 734 / 734 1080 / 1080 Output Total 475 / 475 475 / 475 Balance 259 / 259 605 / 605 Intake: Oral 100 / 100 1080 / 1080 Blood Product 634 / 634 Rbcs Leuko Poor As-1 346 / 346 Unit [id number] Rbcs Leuko Poor As-1 288 / 288 Unit [id number] Output: Urine 475 / 475 475 / 475 Other: Meal Lunch Stool Size Small Stool Consistency soft Stool Color Brown # Bowel Movements 0 1 Weight 116.233 kg Blood Glucose* 131 132 257 Patient Weight 01/04/17 23:59 Weight 116.233 kg - General physical appearance well developed, well nourished, no distress - Eyes normal ocular movement - ENT normal mucosa, atraumatic, normocephalic - Neck Neck exam: trachea midline - Respiratory normal respiratory effort, clear to auscultation - Cardiovascular Cardiovascular exam: Present: irregular rhythm - Abdomen Abdomen: Present: bowel sounds present, soft, non tender - Integumentary no rash - Neurologic CN 2-12 grossly intact - Musculoskeletal normal posture - Psychiatric oriented to time, oriented to person, oriented to place, speech is normal, memory intact - Labs 01/05/17 04:41 01/04/17 08:11 Diabetes panel 01/04/17 Range/Units 08:11 Sodium 142 (136-145) mEq/L Potassium 4.1 (3.5-4.5) mEq/L Chloride 110 H (98-109) mEq/L Carbon Dioxide 24 (19-29) mEq/L BUN 14 (8-26) mg/dL Creatinine 1.11 (0.72-1.25) mg/dL Glucose 131 H (70-99) mg/dL Calcium 7.8 L (8.6-10.8) mg/dL Calcium panel 01/04/17 Range/Units 08:11 Calcium 7.8 L (8.6-10.8) mg/dL Pituitary panel 01/04/17 Range/Units 08:11 Sodium 142 (136-145) mEq/L Potassium 4.1 (3.5-4.5) mEq/L Chloride 110 H (98-109) mEq/L Carbon Dioxide 24 (19-29) mEq/L BUN 14 (8-26) mg/dL Creatinine 1.11 (0.72-1.25) mg/dL Glucose 131 H (70-99) mg/dL Calcium 7.8 L (8.6-10.8) mg/dL Adrenal panel 01/04/17 Range/Units 08:11 Sodium 142 (136-145) mEq/L Potassium 4.1 (3.5-4.5) mEq/L Chloride 110 H (98-109) mEq/L Carbon Dioxide 24 (19-29) mEq/L BUN 14 (8-26) mg/dL Creatinine 1.11 (0.72-1.25) mg/dL Glucose 131 H (70-99) mg/dL Calcium 7.8 L (8.6-10.8) mg/dL Consult Discharge Plan - Plan Referrals: Major Gonsalves DO [Primary Care Provider] - - Attending Attestation I examined this patient and my medical decision-making was reviewed with the EXTRUSION PRESS SUPERVISOR/PA/Advanced Practice Nurse/Resident Physician. I agree with the documented findings, disposition and treatment plan as described except to the extent set forth below.
[2017-01-04] MEDS: 0.9 % Sodium Chloride 1,000 ML IVC SCH (17:59)
--- NOTE | 2017-01-04 18:02 | Internal Med Progress Note ---
Date of Encounter: 01/04/17 Time of Encounter: 13:10 - Assessment and plan (1) Acute blood loss anemia Current Visit: Yes Status: Acute (2) Anemia Current Visit: Yes Status: Acute Qualifiers: Anemia type: other cause Other causes of anemia: other cause, not classified Qualified Code(s): D64.89 - Other specified anemias (3) CKD (chronic kidney disease) stage 3, GFR 30-59 ml/min Current Visit: Yes Status: Chronic (4) Chronic atrial fibrillation Current Visit: Yes Status: Chronic Assessment and plan: cONTINUE PRESENT CARE Continue to hold Coumadin. (5) Chronic diastolic heart failure Current Visit: Yes Status: Acute (6) Lower gastrointestinal hemorrhage Current Visit: Yes Status: Acute Assessment and plan: No active bleeding Appreciate surgical evaluation For colonoscopy +/- For bowel prep later today Clear liquid diet all day, npo after midnight. Repeat HH in the AM. (7) Type 2 diabetes mellitus Current Visit: Yes Status: Chronic Qualifiers: Diabetes mellitus complication status: without complication Diabetes mellitus termite control technician insulin use: with termite control technician use Qualified Code(s): E11.9 - Type 2 diabetes mellitus without complications; Z79.4 - FPC (current) use of insulin - Subjective Interval history: He feels better. Good response to transfused PRBC. Hb is 9.1 today. He has not moved his bowel so in 12 hours. His reports minimal blood stain on rectal wipes. No chest pain, shortness of breth or dizziness. I appreciate evaluation by surgeon/endoscopist. - Constitutional Vitals: Temp Pulse Resp BP Pulse Ox 98.2 F 105 18 149/81 98 01/04/17 15:55 01/04/17 15:55 01/04/17 15:55 01/04/17 15:55 01/04/17 15:55 General appearance: Present: A&O X 3 Exam: Not in distress, his was at bedside. not pale, anicteric, afebrile, acyanotic No JVD. Chest is clear. Heart: intermittently irregular, HS1/2 Abdomen: soft, non-tender, no masses FURNACE SETTER: aao x 3. Perineum: no blood on diapers. No bleeding noted from any other orifice. Internal Medicine: Result - Labs CBC & Chem 7: 01/04/17 08:11 01/04/17 08:11 Labs: Short CBC 01/03/17 01/04/17 Range/Units 19:56 08:11 WBC 8.9 (4.3-11.1) K/mcL Hgb 7.6 L 9.1 L D (12.9-16.9) g/dL Hct 23.7 L 28.2 L (37.5-50.1) % Plt Count 185 (140-400) K/mcL Neutrophils # 6.2 (1.6-8.9) K/mcL BMP 01/04/17 08:11 Sodium 142 Potassium 4.1 Chloride 110 H Carbon Dioxide 24 BUN 14 Creatinine 1.11 Glucose 131 H Calcium 7.8 L - ABG Interpretation ABG results: PT/INR, D-dimer PT 12.6 Seconds (9.4-12.1) H 01/02/17 23:50 Consult Discharge Plan - Plan Referrals: Major Gonsalves DO [Primary Care Provider] -
[2017-01-04] MEDS ORDERED: Insulin LISPRO 300 UNITS/3 ML VIAL SQ ONE (18:08)
[2017-01-04] MEDS: Insulin LISPRO 300 UNITS/3 ML VIAL SQ SCH ×2 (18:20→20:35)
[2017-01-04] MEDS: *HR* OxyCODONE/APAP 5/325 TABLET PO PRN (20:32)
[2017-01-04] MEDS: Latanoprost 2.5 ML BOTTLE BOTH EYES SCH (20:34)
[2017-01-05] MEDS: *HR* Morphine 2 MG/ML SYRINGE IVP PRN (01:32)
[2017-01-05 05:39] LABS: Basophils # 0.1 K/mcL (0.0-0.2); Basophils % 0.6 %; Eosinophils # 0.3 K/mcL (0.0-0.6); Hematocrit 27.7 % (37.5-50.1); Hemoglobin 8.8 g/dL (12.9-16.9); Immature Granulocytes % 0.5 % (0-4); Lymphocytes # 1.8 K/mcL (0.6-4.6); Mean Corpuscular HGB Conc 31.8 g/dL (31.6-35.5); Mean Corpuscular Hemoglobin 29.1 pg (28.0-33.3); Mean Corpuscular Volume 91.7 fL (83.0-100.0); Monocytes # 0.8 K/mcL (0.0-1.3); Monocytes % 10.1 %; Neutrophils # 5.1 K/mcL (1.6-8.9); Nucleated Red Blood Cells 0.2 /100 WBC (0); Platelet Count 186 K/mcL (140-400); Red Blood Count 3.02 M/mcL (4.19-5.50); Red Cell Distribution Width 13.9 % (11.5-14.5); Segmented Neutrophils % 62.8 %
[2017-01-05] MEDS: Pantoprazole 40 MG VIAL IVP SCH ×2 (05:53→17:36)
[2017-01-05] MEDS ORDERED: Insulin LISPRO 300 UNITS/3 ML VIAL SQ SCH (07:30)
[2017-01-05] MEDS: ZETIA 10MG PO SCH (08:28)
[2017-01-05] MEDS: Insulin LISPRO 300 UNITS/3 ML VIAL SQ SCH ×4 (08:28→21:59)
[2017-01-05] MEDS: Valsartan 160 MG TABLET PO SCH (08:28)
[2017-01-05] MEDS: Furosemide 40 MG TABLET PO SCH (08:28)
[2017-01-05] MEDS: Finasteride 5 MG TABLET PO SCH (08:29)
[2017-01-05] MEDS ORDERED: *HR* Midazolam HCl 5 MG/5 ML VIAL IVP ONE (08:41)
[2017-01-05] MEDS ORDERED: *HR* FentaNYL (PF) 100 MCG/2 ML VIAL ONE (08:42)
[2017-01-05] MEDS ORDERED: *HR* FentaNYL (PF) 100 MCG/2 ML VIAL IVP PRN (09:35)
[2017-01-05] MEDS ORDERED: Simethicone 40 MG/0.6 ML MLS IR ONE (09:35)
[2017-01-05] MEDS ORDERED: *HR* Midazolam HCl 5 MG/5 ML VIAL IVP PRN (09:35)
--- NOTE | 2017-01-05 09:35 | Pre-Sedation Evaluation ---
Pre-sedation evaluation - Pre-sedation checklist Date of procedure: 01/05/17 Procedure: colonoscopy Recent Vitals: Last Vital Signs Temp 98.9 F 01/05/17 09:00 Pulse 99 01/05/17 09:00 Resp 18 01/05/17 09:00 BP 164/91 01/05/17 09:00 Pulse Ox 95 01/05/17 08:59 H&P (including ROS) documented in medical record: Yes Previous reaction to sedatives/anesthetics: No Dietary Status: NPO after Midnight Dentition: No loose teeth or bridges Possible difficult airway: No If Yes;: History of difficult intubation ASA Classification *see protocol: CLASS II-Mild systemic disease
[2017-01-05] MEDS ORDERED: 0.9 % Sodium Chloride 1,000 ML IVC SCH (09:45)
--- NOTE | 2017-01-05 09:56 | Internal Med Progress Note ---
<Gonzales Vargas - Last Filed: 01/05/17 11:25> Date of Encounter: 01/05/17 Time of Encounter: 09:53 - Assessment and plan (1) Acute blood loss anemia Current Visit: Yes Status: Acute Assessment and plan: 81 y/o M hx of afib, diastolic HF, CAD, GERD, CKD III, hypothyroidism presented with acute on set of hematochezia. 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 Patient was started on warfarin for atrial fibrillation. He had previous massive GI bleed one week ago and was hospitalized at [facility] for five days and given FFP and IVF. After being d/c form [facility] he continued to have rectal bleeding. Patient has had multiple colonoscopies in the past four years for a recurrent polyp in the colon. 2nd to lower GI bleed. Has been given two [facility] hgb stable at 8.8 undergo colonscopy this morning. repeat CBC after colonoscopy hold warfarin continue IVF and protonix (2) Lower gastrointestinal hemorrhage Current Visit: Yes Status: Acute Assessment and plan: Plan as above. GI bleed scan NM was negative for active bleed undergoing colonoscopy this morning. (3) Chronic diastolic heart failure Current Visit: Yes Status: Chronic Assessment and plan: hx of diastolic CHF. Not acute exacerbation on IVF for acute GI bleed Monitor I/os continue lasix. (4) UTI (urinary tract infection) Current Visit: Yes Status: Acute Assessment and plan: 2nd to ecoli continue ceftriaxone day 1 strict i/os Qualifiers: Urinary tract infection type: acute cystitis Hematuria presence: without hematuria Qualified Code(s): N30.00 - Acute cystitis without hematuria (5) History of hypothyroidism Current Visit: Yes Status: Acute Assessment and plan: controlled. continue levothyroxine (6) Hx of essential hypertension Current Visit: Yes Status: Acute Assessment and plan: controlled. continue valsartan (7) CKD (chronic kidney disease) stage 3, GFR 30-59 ml/min Current Visit: Yes Status: Chronic Assessment and plan: Scr is 1.11 which is improved from baseline continue IVF. (8) Chronic atrial fibrillation Current Visit: Yes Status: Chronic Assessment and plan: controlled. RRR Continue to hold Coumadin. (9) Type 2 diabetes mellitus Current Visit: Yes Status: Chronic Assessment and plan: glucose is controlled. continue Q6H accuchecks and SSI. Qualifiers: Diabetes mellitus complication status: without complication Diabetes mellitus dedicated intermodal truck driver insulin use: with usp use Qualified Code(s): E11.9 - Type 2 diabetes mellitus without complications; Z79.4 - intermediate project manager (current) use of insulin - Subjective Interval history: Patient undergoing egd for GI bleed. - Constitutional Vitals: Temp Pulse Resp BP Pulse Ox 98.9 F 88 16 171/102 99 01/05/17 09:00 01/05/17 09:49 01/05/17 09:49 01/05/17 09:49 01/05/17 09:49 General appearance: Present: A&O X 3 - Head Head exam: Present: atraumatic, normocephalic - Eye Eye exam: Present: PERRL, conjuntiva pink, sclera anicteric - Neck Neck exam general surgery: Present: supple, trachea midline. Absent: lymphadenopathy - Respiratory Respiratory exam: Present: CTAB. Absent: accessory muscle use, rales, rhonchi, wheezes - Cardiovascular Cardiovascular exam: Present: RRR, +S1, +S2. Absent: diastolic murmur, gallop, rubs, systolic murmur - GI/Abdominal GI/Abdominal exam: Present: normal bowel sounds, soft, no peritoneal signs. Absent: distended, tenderness - Extremities Exam Extremities exam: Present: warm, radial pulses palpable and symetrical. Absent : calf tenderness, cyanotic, pedal edema - Neurological Exam Neurological exam: Present: CN II-XII intact, oriented X3, no focal deficits. Absent: pronater drift, facial droop, speech deficit - Skin Skin exam: Present: dry, intact Internal Medicine: Result - Labs CBC & Chem 7: 01/05/17 04:41 01/04/17 08:11 Labs: Short CBC 01/05/17 Range/Units 04:41 WBC 8.1 (4.3-11.1) K/mcL Hgb 8.8 L (12.9-16.9) g/dL Hct 27.7 L (37.5-50.1) % Plt Count 186 (140-400) K/mcL Neutrophils # 5.1 (1.6-8.9) K/mcL - ABG Interpretation ABG results: PT/INR, D-dimer PT 12.6 Seconds (9.4-12.1) H 01/02/17 23:50 Consult Discharge Plan - Plan Referrals: Major Gonsalves DO [Primary Care Provider] - <Hal Marie T - Last Filed: 01/05/17 14:31> - Constitutional Vitals: Temp Pulse Resp BP Pulse Ox 98.1 F 78 14 132/71 94 L 01/05/17 10:28 01/05/17 10:28 01/05/17 10:28 01/05/17 10:28 01/05/17 10:28 Internal Medicine: Result - Labs CBC & Chem 7: 01/05/17 04:41 01/04/17 08:11 Labs: Short CBC 01/05/17 Range/Units 04:41 WBC 8.1 (4.3-11.1) K/mcL Hgb 8.8 L (12.9-16.9) g/dL Hct 27.7 L (37.5-50.1) % Plt Count 186 (140-400) K/mcL Neutrophils # 5.1 (1.6-8.9) K/mcL - ABG Interpretation ABG results: PT/INR, D-dimer PT 12.6 Seconds (9.4-12.1) H 01/02/17 23:50 - Attending Attestation I examined this patient and my medical decision-making was reviewed with the CLOTHING ROOM SUPERVISOR/PA/Advanced Practice Nurse/Resident Physician. I agree with the documented findings, disposition and treatment plan as described except to the extent set forth below. 81 Y/O M with PMH of Afib, CHFpEF, CAD, GERD, CKD III, Hypothyroidism Admitted for management of LGIB Seen with spouse at bedside, denies new complains Sleepy but rousable from anesthesia, chest is clear, abdomen is benign Labs and imaging reviewed, Hb is stable Colonoscopy reports with abnormal finding of rectal mucosa, necessitating rectal excision, gen surgery on board Clear liquid diet only, for surgery a.m Continue to hold coumadin Rest of details as in resident's documentation
[2017-01-05] MEDS: *HR* OxyCODONE/APAP 5/325 TABLET PO PRN (21:58)
[2017-01-05] MEDS: Latanoprost 2.5 ML BOTTLE BOTH EYES SCH (21:59)
[2017-01-06] MEDS: *HR* OxyCODONE/APAP 5/325 TABLET PO PRN (04:21)
[2017-01-06 04:59] LABS: Basophils # 0.1 K/mcL (0.0-0.2); Basophils % 0.6 %; Eosinophils # 0.2 K/mcL (0.0-0.6); Eosinophils % 2.1 %; Hematocrit 26.6 % (37.5-50.1); Hemoglobin 8.5 g/dL (12.9-16.9); Immature Granulocytes % 0.7 % (0-4); Lymphocytes # 1.4 K/mcL (0.6-4.6); Lymphocytes % 15.6 %; Mean Corpuscular Hemoglobin 29.3 pg (28.0-33.3); Mean Corpuscular Volume 91.7 fL (83.0-100.0); Mean Platelet Volume 11.9 fL (9.4-12.4); Monocytes # 1.1 K/mcL (0.0-1.3); Monocytes % 12.1 %; Neutrophils # 6.3 K/mcL (1.6-8.9); Platelet Count 181 K/mcL (140-400); Red Cell Distribution Width 13.8 % (11.5-14.5); Segmented Neutrophils % 68.9 %
[2017-01-06] MEDS: Pantoprazole 40 MG VIAL IVP SCH ×2 (06:38→17:58)
[2017-01-06] MEDS: Insulin LISPRO 300 UNITS/3 ML VIAL SQ SCH ×4 (08:29→22:31)
[2017-01-06] MEDS: Valsartan 160 MG TABLET PO SCH (09:22)
[2017-01-06] MEDS: Finasteride 5 MG TABLET PO SCH (09:22)
[2017-01-06] MEDS: Furosemide 40 MG TABLET PO SCH (09:22)
[2017-01-06] MEDS: ZETIA 10MG PO SCH (09:27)
[2017-01-06] MEDS: *HR* Digoxin 0.125 MG TABLET PO SCH (09:31)
--- NOTE | 2017-01-06 12:57 | Event Note ---
Date of Encounter: 01/06/17 Time of Encounter: 12:56 Discussed the risks, benefits, alternatives and expected outcomes of the procedure with the patient and his . He will undergo a transanal excision of rectal lesion today with Dr. Mancuso. He has been NPO after midnight.
--- NOTE | 2017-01-06 16:34 | Anesthesia Evaluation PreOp ---
Date of Encounter: 01/06/17 Time of Encounter: 16:34 - Past History Planned Operation: Transanal lesion excision Cardiac History: [place], CHF (Chronic diastolic), HTN, Arrhythmia (Chronic Afib), Other (Cardiomyopathy -mod diastolic dysfunction- CAD) Pulmonary History: Former smoker (pipe x 20 yeras, quit 25 years ago), COPD ( home O2) Other Medical History: Renal (CRD stage III), Diabetes Type II, Thyroid ( Hypothyroid), GERD Anesthesia History: No Prior Anesthetic Complications, Past Anesthesia ( Cataracts, colonoscopy,) Alcohol Use: none Drug use: none Medications and Allergies Allopurinol [Zyloprim 300 MG] 300 mg PO DAILY 01/03/17 [History] Digoxin [Lanoxin] 0.125 mg PO MOWEFR 01/03/17 [History] Docusate [Colace] 100 mg PO BID 01/03/17 [History] Ezetimibe 10 mg PO DAILY 01/03/17 [History] Finasteride [Proscar] 5 mg PO DAILY 01/03/17 [History] Furosemide [Lasix] 40 mg PO BID 01/03/17 [History] Insulin ASPART [Novolog Flexpen] 12 unit SQ TID 01/03/17 [History] Insulin DETEMIR [Levemir Flextouch] 50 unit SQ QAM 01/03/17 [History] Insulin DETEMIR [Levemir] 45 unit SQ HS 01/03/17 [History] Latanoprost [Xalatan] 1 drop BOTH EYES HS 01/03/17 [History] Levothyroxine [Synthroid] 150 mcg PO DAILY 01/03/17 [History] Lidocaine [Recticare] 1 appl RC Q6H PRN 01/03/17 [History] Metolazone 2.5 mg PO QAM 01/03/17 [History] Metoprolol [Lopressor] 50 mg PO BID 01/03/17 [History] OxyCODONE/APAP 5/325 [Percocet 5/325 MG] 1 tab PO Q4HR PRN 01/03/17 [History] Potassium Chloride [K-Tab ER] 40 meq PO BID 01/03/17 [History] Tamsulosin [Flomax] 0.4 mg PO HS 01/03/17 [History] Valsartan [Diovan] 320 mg PO DAILY 01/03/17 [History] Allergies Tetracycline Adverse Reaction (Verified 01/03/17 03:06) Hives - Meds/Allergy Pre-op Review Medications Reviewed: Yes Allergies Reviewed: Yes Beta Blockers on Current Med List: Yes If Beta Blockers taken, Date/Time (Last Dose taken): 09:22 01/06/2017 Anesthesia Results - Labs 01/06/17 04:10 01/04/17 08:11 09/06 Echo EF 60-65% - Imaging EKG: image reviewed (Afib rate 91) Anesthesia Exam O2 Sat Weight 117.962 kg O2 Sat by Pulse Oximetry 96 O2 Sat by Pulse Oximetry 95 O2 Sat by Pulse Oximetry 95 O2 Sat by Pulse Oximetry 93 O2 Sat by Pulse Oximetry 97 O2 Sat by Pulse Oximetry 97 Vital Signs Temp Pulse Resp BP Pulse Ox 95.6 F L 117 22 127/71 97 01/02/17 23:12 01/02/17 23:12 01/02/17 23:12 01/02/17 23:12 01/02/17 23:12 Vital Signs/O2 Sat, Most Current Temp Pulse Resp BP Pulse Ox 98.2 F 70 14 160/71 96 01/06/17 14:27 01/06/17 14:27 01/06/17 14:27 01/06/17 14:27 01/06/17 14:27 Height: 5'11'' Weight: 260# NPO (# of Hours): > 8 hrs Pain Scale: 0 Pain Scale Used: Numeric (1 - 10) - HEENT Pupil (Motor): Pupils equal, EOMI Mallampati: IV Teeth: Normal Oral Opening: Greater than 3 - VISUAL ARTS TEACHER LOC: Oriented VISUAL ARTS TEACHER Motor: Normal RUE, Normal LUE, Normal RLE, Normal LLE, Normal Face VISUAL ARTS TEACHER Sensory: Normal: RUE, LUE, RLE, LLE, Face - Cardiac Rhythm: Irregular Murmur: None JVD: No Carotid Bruit: No - Pulmonary Breath Sounds: bilateral Clear Respiratory Effort: Symmetrical Anesthesia Assess/Plan ASA Score: 4 Modified Purdin Scale for Level of Consciousness: Cooperative, oriented, and tranquil Anesthetic Plan: General Autologous Blood: Yes Monitoring Plan: Standard Monitors Recovery Plan: PACU
--- NOTE | 2017-01-06 16:45 | Internal Med Progress Note ---
Date of Encounter: 01/06/17 Time of Encounter: 14:00 - Assessment and plan (1) Acute blood loss anemia Current Visit: Yes Status: Acute Assessment and plan: 81 y/o M hx of afib, diastolic HF, CAD, GERD, CKD III, hypothyroidism presented with acute on set of hematochezia. 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 Patient was started on warfarin for atrial fibrillation. He had previous massive GI bleed one week ago and was hospitalized at [facility] for five days and given FFP and IVF. After being d/c form [facility] he continued to have rectal bleeding. Patient has had multiple colonoscopies in the past four years for a recurrent polyp in the colon. 2nd to lower GI bleed. Has been given two [facility] hgb stable at 8.5 He is s/p colonoscopy with rectal lesion Patient is for excision today he is high risk due to emergent procedure Will continue to hold warfarin (2) DVT prophylaxis Current Visit: Yes Status: Acute Assessment and plan: SCDs, active GI bleed (3) History of hypothyroidism Current Visit: Yes Status: Acute Assessment and plan: controlled. continue levothyroxine (4) Hx of essential hypertension Current Visit: Yes Status: Acute Assessment and plan: controlled. continue valsartan (5) Lower gastrointestinal hemorrhage Current Visit: Yes Status: Acute Assessment and plan: Plan as in acute blood loss anemia (6) UTI (urinary tract infection) Current Visit: Yes Status: Acute Assessment and plan: Ceftriaxone day 1 Qualifiers: Urinary tract infection type: acute cystitis Hematuria presence: without hematuria Qualified Code(s): N30.00 - Acute cystitis without hematuria (7) CKD (chronic kidney disease) stage 3, GFR 30-59 ml/min Current Visit: Yes Status: Chronic Assessment and plan: Scr is 1.11 which is improved from baseline continue IVF. (8) Chronic atrial fibrillation Current Visit: Yes Status: Chronic Assessment and plan: controlled. RRR Continue to hold Coumadin. (9) Chronic diastolic heart failure Current Visit: Yes Status: Chronic Assessment and plan: hx of diastolic CHF. Not acute exacerbation on IVF for acute GI bleed Monitor I/os continue lasix. (10) Type 2 diabetes mellitus Current Visit: Yes Status: Chronic Assessment and plan: glucose is controlled. continue Q6H accuchecks and SSI. Qualifiers: Diabetes mellitus complication status: without complication Diabetes mellitus custodial insulin use: with superintendent marine oil terminal use Qualified Code(s): E11.9 - Type 2 diabetes mellitus without complications; Z79.4 - USP (current) use of insulin - Subjective Interval history: 81 Y/O M with PMH of Afib, CHFpEF, CAD, GERD, CKD III, Hypothyroidism Admitted for management of LGIB Seen with spouse at bedside, denies new complains Awaiting excision of rectal mucosa today urine culture today with pansensitive E.coli, started on ceftriaxone - Constitutional Vitals: Temp Pulse Resp BP Pulse Ox 98.2 F 70 14 160/71 96 01/06/17 14:27 01/06/17 14:27 01/06/17 14:27 01/06/17 14:27 01/06/17 14:27 General appearance: Present: A&O X 3, pleasant, no acute distress - Head Head exam: Present: atraumatic Additional comments: Patient with diffuse erythematous rash on his face, when i asked his she states "its always been there", this rash looks worse to me than what it looked like yesterday, will continue to observe - Eye Eye exam: Present: PERRL, conjuntiva pink, sclera anicteric - ENT ENT exam: Present: mucous membranes moist - Neck Neck exam general surgery: Present: supple, trachea midline. Absent: lymphadenopathy - Respiratory Respiratory exam: Present: CTAB. Absent: accessory muscle use, rales, rhonchi, wheezes - Cardiovascular Cardiovascular exam: Present: irregular rhythm, +S1, +S2. Absent: diastolic murmur, gallop, rubs, systolic murmur - GI/Abdominal GI/Abdominal exam: Present: normal bowel sounds, soft, no peritoneal signs. Absent: distended, tenderness - Extremities Exam Extremities exam: Present: warm, radial pulses palpable and symetrical. Absent : calf tenderness, cyanotic, pedal edema - Neurological Exam Neurological exam: Present: CN II-XII intact, oriented X3, no focal deficits. Absent: pronater drift, facial droop, speech deficit - Skin Skin exam: Present: dry Internal Medicine: Result - Labs CBC & Chem 7: 01/06/17 04:10 01/04/17 08:11 Labs: Short CBC 01/06/17 Range/Units 04:10 WBC 9.1 (4.3-11.1) K/mcL Hgb 8.5 L (12.9-16.9) g/dL Hct 26.6 L (37.5-50.1) % Plt Count 181 (140-400) K/mcL Neutrophils # 6.3 (1.6-8.9) K/mcL - ABG Interpretation ABG results: PT/INR, D-dimer PT 12.6 Seconds (9.4-12.1) H 01/02/17 23:50 Consult Discharge Plan - Plan Referrals: Major Gonsalves DO [Primary Care Provider] -
[2017-01-06] MEDS ORDERED: *HR* Propofol 200 MG/20 ML VIAL IVP ONE (18:10)
[2017-01-06] MEDS ORDERED: *HR* FentaNYL (PF) 100 MCG/2 ML VIAL ONE ×2 (18:10→19:27)
[2017-01-06] MEDS ORDERED: *HR* Succinylcholine 200 MG/10 ML VIAL IVP ONE (18:11)
[2017-01-06] MEDS ORDERED: Lidocaine -MPF 2% 2 ML VIAL ONE (18:11)
[2017-01-06] MEDS ORDERED: Lidocaine Jelly 6 ml Syringe ONE (18:15)
[2017-01-06] MEDS ORDERED: Lidocaine Jelly 2% 30 ML JEL..ML. ONE (18:17)
[2017-01-06] MEDS ORDERED: EPHEDrine 50 MG/ML VIAL ONE (18:27)
[2017-01-06] MEDS ORDERED: *HR* Etomidate 40 MG/20 ML VIAL IVP ONE (18:28)
[2017-01-06] MEDS ORDERED: Water for inj. (sterile) 10 ML IV ONE (18:28)
[2017-01-06] MEDS ORDERED: CefOXitin 2,000 MG VIAL IVPB ONE (19:06)
[2017-01-06] MEDS ORDERED: Esmolol 100 MG/10 ML VIAL IVP ONE (19:35)
[2017-01-06] MEDS ORDERED: *HR* Metoprolol 5 MG/5 ML VIAL IVP ONE (19:37)
[2017-01-06] MEDS ORDERED: *HR* HYDROmorphone (PF) 1 MG/ML SYRINGE IVP PRN (19:41)
[2017-01-06] MEDS ORDERED: Amiodarone Premix 360 MG/200 ML BAG IVC ONE (19:56)
[2017-01-06] MEDS ORDERED: Amiodarone Premix 150 MG/100 ML BAG IVPB ONE (19:56)
--- NOTE | 2017-01-06 20:42 | Anesthesia Evaluation Post Op ---
Date of Encounter: 01/06/17 Time of Encounter: 20:41 - Vital Signs Vital Signs: Vital Signs/O2 Sat/Glucose, Most Current Temp Pulse Resp BP Pulse Ox 01/06/17 20:30 97.0 F L 104 20 138/94 94 L 01/06/17 20:20 89 20 131/88 93 L 01/06/17 20:10 99 20 133/94 94 L 01/06/17 20:00 97.3 F L 121 20 142/87 98 - Lungs Lungs: Clear Ascult./Percussion - Airway Airway: Non-obstructed - Cardiovascular Baseline Rhythm (rapid rate (AF RVR, for chronic AF with home metoprolol) responded to esmolol bolus and Metoprolol IV. no cp, no sob, no hypotn) - Mental Status Mental Status: Alert & Oriented, Answers Appropriately - Pain Pain Scale: 2 - Nausea Vomiting Nausea Vomiting: Not Present - Hydration Hydration: NPO - Discharge PostOp Status: Transfer Patient to floor
[2017-01-06] MEDS: Latanoprost 2.5 ML BOTTLE BOTH EYES SCH (22:30)
[2017-01-06] MEDS: *HR* Morphine 2 MG/ML SYRINGE IVP PRN (23:56)
[2017-01-07] MEDS ORDERED: Amiodarone Premix 360 MG/200 ML BAG IVC SCH (02:00)
[2017-01-07] MEDS: Pantoprazole 40 MG VIAL IVP SCH ×2 (05:20→18:48)
[2017-01-07] MEDS: *HR* OxyCODONE/APAP 5/325 TABLET PO PRN ×3 (05:20→21:22)
[2017-01-07] MEDS ORDERED: Acetaminophen 325 MG TABLET PO PRN (07:46)
[2017-01-07] MEDS: Insulin LISPRO 300 UNITS/3 ML VIAL SQ SCH ×4 (07:56→21:23)
[2017-01-07 09:22] LABS: Basophils % 0.3 %; Eosinophils # 0.1 K/mcL (0.0-0.6); Eosinophils % 0.4 %; Hematocrit 28.2 % (37.5-50.1); Hemoglobin 9.1 g/dL (12.9-16.9); Immature Granulocytes % 0.4 % (0-4); Lymphocytes # 1.1 K/mcL (0.6-4.6); Lymphocytes % 8.7 %; Mean Corpuscular HGB Conc 32.3 g/dL (31.6-35.5); Mean Corpuscular Hemoglobin 29.2 pg (28.0-33.3); Mean Corpuscular Volume 90.4 fL (83.0-100.0); Mean Platelet Volume 11.5 fL (9.4-12.4); Monocytes # 1.4 K/mcL (0.0-1.3); Monocytes % 11.3 %; Neutrophils # 9.7 K/mcL (1.6-8.9); Platelet Count 198 K/mcL (140-400); Red Blood Count 3.12 M/mcL (4.19-5.50); Red Cell Distribution Width 13.8 % (11.5-14.5); Segmented Neutrophils % 78.9 %
[2017-01-07 09:33] LABS: BUN/Creatinine Ratio 8 (6-26); Blood Urea Nitrogen 11 mg/dL (8-26); Calcium 7.9 mg/dL (8.6-10.8); Carbon Dioxide 26 mEq/L (19-29); Chloride 107 mEq/L (98-109); Glucose 181 mg/dL (70-99); Osmolality,Calculated 294 (280-300); Potassium 3.3 mEq/L (3.5-4.5); Sodium 140 mEq/L (136-145); eGFR For African Americans > 60 (> 60); eGFR For Non-African Americans 50 (> 60)
[2017-01-07] MEDS: Valsartan 160 MG TABLET PO SCH (09:56)
[2017-01-07] MEDS: Finasteride 5 MG TABLET PO SCH (09:56)
[2017-01-07] MEDS: Furosemide 40 MG TABLET PO SCH (09:56)
[2017-01-07] MEDS: ZETIA 10MG PO SCH (10:00)
--- NOTE | 2017-01-07 11:56 | Internal Med Progress Note ---
Date of Encounter: 01/07/17 Time of Encounter: 11:52 - Assessment and plan (1) Sepsis Current Visit: Yes Status: Acute Assessment and plan: Overnight, he had an episode of fever, 100.1, and tachycardia. CBC done stat revealed leukocytosis with left shift, slight increase in creatinine but still within patient's baseline Stat CXR done showed developing small lefr effusion with lower lobe atelectasis , there is additional right infrahilar atelectasis or infiltrate... Blood cultures have been sent Patient has received 2 days of Ceftriaxone IV 1g daily Will broaden coverage to Vanco and Cefepime based on non-specific CXR findings Pharmacy to dose Vancomycin Follow cultures Will check retroperitoneal USS Patient is high risk for decompensation to severe sepsis and septic shock Qualifiers: Sepsis type: sepsis due to unspecified organism Qualified Code(s): A41.9 - Sepsis, unspecified organism (2) UTI (urinary tract infection) Current Visit: Yes Status: Acute Assessment and plan: As above Qualifiers: Urinary tract infection type: acute cystitis Hematuria presence: without hematuria Qualified Code(s): N30.00 - Acute cystitis without hematuria (3) Acute blood loss anemia Current Visit: Yes Status: Acute Assessment and plan: 81 y/o M hx of afib, diastolic HF, CAD, GERD, CKD III, hypothyroidism presented with acute on set of hematochezia. 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 Patient was started on warfarin for atrial fibrillation. He had previous massive GI bleed one week ago and was hospitalized at [facility] for five days and given FFP and IVF. After being d/c form [facility] he continued to have rectal bleeding. Patient has had multiple colonoscopies in the past four years for a recurrent polyp in the colon. 2nd to lower GI bleed. Has been given two [facility] hgb stable today at 9 He is s/p colonoscopy with rectal lesion excision (4) DVT prophylaxis Current Visit: Yes Status: Acute Assessment and plan: SCDs,for now Will confirm from surgery when it is safe to restart Coumadin (5) History of hypothyroidism Current Visit: Yes Status: Acute Assessment and plan: controlled. continue levothyroxine (6) Hx of essential hypertension Current Visit: Yes Status: Acute Assessment and plan: controlled. continue valsartan (7) Lower gastrointestinal hemorrhage Current Visit: Yes Status: Acute Assessment and plan: Plan as in acute blood loss anemia (8) CKD (chronic kidney disease) stage 3, GFR 30-59 ml/min Current Visit: Yes Status: Chronic Assessment and plan: Scr is 1.11 which is improved from baseline D/C IVF (9) Chronic atrial fibrillation Current Visit: Yes Status: Chronic Assessment and plan: controlled. RRR Continue to hold Coumadin. (10) Chronic diastolic heart failure Current Visit: Yes Status: Chronic Assessment and plan: hx of diastolic CHF. Not acute exacerbation Continue lasix (11) Type 2 diabetes mellitus Current Visit: Yes Status: Chronic Assessment and plan: glucose is controlled. continue Q6H accuchecks and SSI. Qualifiers: Diabetes mellitus complication status: without complication Diabetes mellitus terminal press operator insulin use: with terminal press operator use Qualified Code(s): E11.9 - Type 2 diabetes mellitus without complications; Z79.4 - buttermaker (current) use of insulin - Subjective Interval history: 81 Y/O M with PMH of Afib, CHFpEF, CAD, GERD, CKD III, Hypothyroidism Admitted for management of LGIB secondary to rectallesion he is s/p excision of he lesion POD1 He is sen at bedside Spouse is in the room Patient denies new complains He also has a UTI with Macias-sensitive E.Coli - Constitutional Vitals: Temp Pulse Resp BP Pulse Ox 99 F 92 18 128/75 92 L 01/07/17 06:40 01/07/17 06:40 01/07/17 06:40 01/07/17 06:40 01/07/17 06:40 General appearance: Present: A&O X 3, pleasant, no acute distress Internal Medicine: Result - Labs CBC & Chem 7: 01/07/17 09:04 01/07/17 09:04 Labs: Short CBC 01/07/17 Range/Units 09:04 WBC 12.3 H (4.3-11.1) K/mcL Hgb 9.1 L (12.9-16.9) g/dL Hct 28.2 L (37.5-50.1) % Plt Count 198 (140-400) K/mcL Neutrophils # 9.7 H (1.6-8.9) K/mcL BMP 01/07/17 09:04 Sodium 140 Potassium 3.3 L Chloride 107 Carbon Dioxide 26 BUN 11 Creatinine 1.36 H Glucose 181 H Calcium 7.9 L - ABG Interpretation ABG results: PT/INR, D-dimer PT 12.6 Seconds (9.4-12.1) H 01/02/17 23:50 - Impressions Impressions Chest X-Ray 01/07/17 07:45 IMPRESSION: Developing bibasilar atelectasis and small left effusion. D/ / 01/07/2017 08:45:46 Jian Guillaume MD / luis Interpreting Provider: Jian Guillaume MD Consult Discharge Plan - Plan Referrals: Major Gonsalves DO [Primary Care Provider] -
[2017-01-07] MEDS ORDERED: Vancomycin 1,000 MG in D5% in Water 250 ML IVPB SCH ×2 (12:00→22:00)
[2017-01-07] MEDS ORDERED: Vancomycin 2,000 MG in D5% in Water 500 ML IVPB SCH (14:00)
--- NOTE | 2017-01-07 15:12 | General Surgery Progress Note ---
<Shelley Kimble Frances - Last Filed: 01/07/17 15:17> Date of Encounter: 01/07/17 Time of Encounter: 15:00 - Assessment and Plan (1) Lower gastrointestinal hemorrhage Current Visit: Yes Status: Acute POD #1 from a transanal rectal excision of rectal lesion Continue cardiac diet Supportive care Hgb stable 8.5>9.1 Pathology pending (2) Acute blood loss anemia Current Visit: Yes Status: Acute hgb stable 8.5>9.1 (3) Acute kidney injury superimposed on chronic kidney disease Current Visit: Yes Status: Acute Continue guzmán catheter to SD Strict I&Os urine culture pending US ordered per hospitalist Avoid nephrotoxic medications- patient on vancomycin per hospitalist (4) DVT prophylaxis Current Visit: Yes Status: Acute EPCDs to bilteral lower extremities for DVT prophylaxis Out of bed to chair with assistance TID Subjective Patient reports: no new complaints, still having pain, pain is less, flatus, afebrile, other (Unable to void last night and guzmán catheter placed) Objective Vital Signs - Last 8 Hours Temp Pulse Resp BP Pulse Ox 01/07/17 11:00 98.1 F 94 16 121/77 94 L Intake and Output 01/06/17 01/07/17 01/07/17 23:59 07:59 15:59 Intake Total 480 / 480 Output Total 50 / 50 125 / 125 150 / 150 Balance -50 / -50 -125 / -125 330 / 330 Intake: Oral 480 / 480 Output: Urine 125 / 125 Estimated Blood Loss 50 / 50 Catheter 150 / 150 Other: Meal Breakfast Percent of Meal Consumed 100% Blood Glucose* 141 211 - General physical appearance well developed, well nourished, no distress - Eyes normal ocular movement - ENT normal mucosa, atraumatic, normocephalic - Neck Neck exam: trachea midline - Respiratory normal respiratory effort, clear to auscultation - Cardiovascular Cardiovascular exam: Present: RRR - Abdomen Abdomen: Present: bowel sounds present, soft, non tender - Rectum normal sphincter tone, no bleeding - Neurologic CN 2-12 grossly intact - Psychiatric oriented to time, oriented to person, oriented to place, speech is normal, memory intact - Labs 01/07/17 09:04 01/07/17 09:04 Diabetes panel 01/07/17 Range/Units 09:04 Sodium 140 (136-145) mEq/L Potassium 3.3 L (3.5-4.5) mEq/L Chloride 107 (98-109) mEq/L Carbon Dioxide 26 (19-29) mEq/L BUN 11 (8-26) mg/dL Creatinine 1.36 H (0.72-1.25) mg/dL Glucose 181 H (70-99) mg/dL Calcium 7.9 L (8.6-10.8) mg/dL Calcium panel 01/07/17 Range/Units 09:04 Calcium 7.9 L (8.6-10.8) mg/dL Pituitary panel 01/07/17 Range/Units 09:04 Sodium 140 (136-145) mEq/L Potassium 3.3 L (3.5-4.5) mEq/L Chloride 107 (98-109) mEq/L Carbon Dioxide 26 (19-29) mEq/L BUN 11 (8-26) mg/dL Creatinine 1.36 H (0.72-1.25) mg/dL Glucose 181 H (70-99) mg/dL Calcium 7.9 L (8.6-10.8) mg/dL Adrenal panel 01/07/17 Range/Units 09:04 Sodium 140 (136-145) mEq/L Potassium 3.3 L (3.5-4.5) mEq/L Chloride 107 (98-109) mEq/L Carbon Dioxide 26 (19-29) mEq/L BUN 11 (8-26) mg/dL Creatinine 1.36 H (0.72-1.25) mg/dL Glucose 181 H (70-99) mg/dL Calcium 7.9 L (8.6-10.8) mg/dL Consult Discharge Plan - Plan Referrals: Major Gonsalves DO [Primary Care Provider] - - Attending Attestation I examined this patient and my medical decision-making was reviewed with the OCCUPATIONAL THERAPY ASSIST/PA/Advanced Practice Nurse/Resident Physician. I agree with the documented findings, disposition and treatment plan as described except to the extent set forth below. <Dago Mancuso E - Last Filed: 01/07/17 17:17> - Assessment and Plan (1) Acute kidney injury superimposed on chronic kidney disease Current Visit: Yes Status: Acute I stopped the vancomycin until discussed with the hospitalist. We did have a discussion. I expressed the addition of Vancomycin put the pt at risk for further kidney injury, especially since there was not identified source of infection. The hospitalist decided to continue the therapy against my advice. I spoke with pharmacy as well. Objective Vital Signs - Last 8 Hours Temp Pulse Resp BP Pulse Ox 01/07/17 15:00 99.5 F 94 20 126/84 96 01/07/17 11:00 98.1 F 94 16 121/77 94 L Intake and Output 01/07/17 01/07/17 01/07/17 07:59 15:59 23:59 Intake Total 960 / 960 399 / 399 Output Total 125 / 125 150 / 150 150 / 150 Balance -125 / -125 810 / 810 249 / 249 Intake: IV Fluids 399 / 399 Vancocin 2,000 MG In 399 / 399 Dextrose 5% 500 ML @ 250 mls/hr IVPB Q24H [facility] Rx#: [id number] Oral 960 / 960 Output: Urine 125 / 125 150 / 150 Catheter 150 / 150 Other: Meal Lunch Percent of Meal Consumed 100% Blood Glucose* 211 - Labs 01/07/17 09:04 01/07/17 09:04 Diabetes panel 01/07/17 Range/Units 09:04 Sodium 140 (136-145) mEq/L Potassium 3.3 L (3.5-4.5) mEq/L Chloride 107 (98-109) mEq/L Carbon Dioxide 26 (19-29) mEq/L BUN 11 (8-26) mg/dL Creatinine 1.36 H (0.72-1.25) mg/dL Glucose 181 H (70-99) mg/dL Calcium 7.9 L (8.6-10.8) mg/dL Calcium panel 01/07/17 Range/Units 09:04 Calcium 7.9 L (8.6-10.8) mg/dL Pituitary panel 01/07/17 Range/Units 09:04 Sodium 140 (136-145) mEq/L Potassium 3.3 L (3.5-4.5) mEq/L Chloride 107 (98-109) mEq/L Carbon Dioxide 26 (19-29) mEq/L BUN 11 (8-26) mg/dL Creatinine 1.36 H (0.72-1.25) mg/dL Glucose 181 H (70-99) mg/dL Calcium 7.9 L (8.6-10.8) mg/dL Adrenal panel 01/07/17 Range/Units 09:04 Sodium 140 (136-145) mEq/L Potassium 3.3 L (3.5-4.5) mEq/L Chloride 107 (98-109) mEq/L Carbon Dioxide 26 (19-29) mEq/L BUN 11 (8-26) mg/dL Creatinine 1.36 H (0.72-1.25) mg/dL Glucose 181 H (70-99) mg/dL Calcium 7.9 L (8.6-10.8) mg/dL
--- NOTE | 2017-01-07 15:51 | Electrocardiograph Report ---
[place] [id number] Test Date: 2017-01-06 Pat Name: Marcos Haynes Department: 101 Room: 3A Gender: M Tube Lancer: : 1935 Requested By: Cruz Flores Order Number: [id number] Reading MD: Shelley Guzman Measurements Intervals [place] Rate: 90 P: NC: 0 QRS: -12 QRSD: 90 T: 5 QT: 333 QTc: 380 Interpretive Statements ATRIAL FIBRILLATION NONSPECIFIC ST \T\ T-WAVE ABNORMALITY ABNORMAL RHYTHM ECG Electronically Signed On 01-07-2017 15:49:43 EDT by Shelley Guzman
[2017-01-07] MEDS ORDERED: Vancomycin 250 MG in D5% in Water 100 ML IVPB ONE (18:02)
[2017-01-07] MEDS: Cefepime HCl 1,000 MG in D5% in Water (Mini-Bag+) 100 ML IVPB SCH (18:47)
[2017-01-07] MEDS: Latanoprost 2.5 ML BOTTLE BOTH EYES SCH (21:23)
--- NOTE | 2017-01-07 21:25 | Event Note ---
Date of Encounter: 01/07/17 Time of Encounter: 21:16 Called to bedside for 's concerns of hypoxemia and apnea. Patient is awake now and in no distress. Lungs are clear on auscultation with some rare scattered rhonchi. describes sleep apnea, and she has been watching the pulse ox all day and all night. She reports that he "stops breathing in his sleep at night" for years and he has refused to have a sleep study performed. He has vague history of COPD. I reassured . I will place him on BiPap tonight and recheck CXR in the morning. Pt may need overnight pulse ox study to qualify for home BiPap/CPAP. I discussed this with and informed her that he truly needs a formal sleep study as previously recommended. I will relay the information to the primary hospitalist in the morning as well.
[2017-01-08 06:27] LABS: Basophils % 0.4 %; Eosinophils # 0.2 K/mcL (0.0-0.6); Eosinophils % 1.9 %; Hematocrit 26.4 % (37.5-50.1); Hemoglobin 8.5 g/dL (12.9-16.9); Immature Granulocytes % 0.5 % (0-4); Lymphocytes # 1.5 K/mcL (0.6-4.6); Lymphocytes % 14.6 %; Mean Corpuscular HGB Conc 32.2 g/dL (31.6-35.5); Mean Corpuscular Hemoglobin 29.4 pg (28.0-33.3); Mean Corpuscular Volume 91.3 fL (83.0-100.0); Mean Platelet Volume 11.9 fL (9.4-12.4); Monocytes # 1.2 K/mcL (0.0-1.3); Monocytes % 12.2 %; Neutrophils # 7.1 K/mcL (1.6-8.9); Platelet Count 175 K/mcL (140-400); Red Blood Count 2.89 M/mcL (4.19-5.50); Red Cell Distribution Width 13.7 % (11.5-14.5); Segmented Neutrophils % 70.4 %
[2017-01-08 06:40] LABS: BUN/Creatinine Ratio 11 (6-26); Blood Urea Nitrogen 14 mg/dL (8-26); Calcium 7.6 mg/dL (8.6-10.8); Carbon Dioxide 25 mEq/L (19-29); Chloride 106 mEq/L (98-109); Glucose 171 mg/dL (70-99); Osmolality,Calculated 293 (280-300); Potassium 3.3 mEq/L (3.5-4.5); Sodium 139 mEq/L (136-145); eGFR For African Americans > 60 (> 60); eGFR For Non-African Americans 55 (> 60)
[2017-01-08] MEDS: Cefepime HCl 1,000 MG in D5% in Water (Mini-Bag+) 100 ML IVPB SCH ×2 (06:52→18:12)
[2017-01-08] MEDS: Pantoprazole 40 MG VIAL IVP SCH (06:52)
[2017-01-08] MEDS: Valsartan 160 MG TABLET PO SCH (08:52)
[2017-01-08] MEDS: Furosemide 40 MG TABLET PO SCH (08:53)
[2017-01-08] MEDS: ZETIA 10MG PO SCH (08:53)
[2017-01-08] MEDS: Finasteride 5 MG TABLET PO SCH (08:53)
[2017-01-08] MEDS: Insulin LISPRO 300 UNITS/3 ML VIAL SQ SCH ×4 (08:53→20:25)
[2017-01-08] MEDS: *HR* Digoxin 0.125 MG TABLET PO SCH (08:56)
--- NOTE | 2017-01-08 09:38 | Internal Med Progress Note ---
Date of Encounter: 01/08/17 Time of Encounter: 09:32 - Assessment and plan (1) Sepsis Current Visit: Yes Status: Suspected Assessment and plan: Suspected Overnight 01/07/17 a.m, he had an episode of fever, 100.1, and tachycardia. CBC done stat revealed leukocytosis with left shift, slight increase in creatinine but still within patient's baseline Stat CXR done showed developing small lefr effusion with lower lobe atelectasis , there is additional right infrahilar atelectasis or infiltrate... Blood cultures have been sent Patient has received 2 days of Ceftriaxone IV 1g daily Will broaden coverage to Vanco and Cefepime based on non-specific CXR findings Pharmacy to dose Vancomycin Follow cultures Will check retroperitoneal USS Patient is high risk for decompensation to severe sepsis and septic shock 01/08 Afebrile Leukocytosis improving CXR done today due to increasing O2 requirement , revealed mild intersititial edema and linear atelectasis on the L lung, with L pleural effusion blood culture is not resulted yet Chem today at baseline Retroperitoneum USS was unremarkable for hydronephrosis, or pyelonephritis Will continue Cefepime and Vancomycin, renally dosed, pharmacy on board Plan to discontinue Vancomycin if blood cultures return no growth Qualifiers: Sepsis type: sepsis due to unspecified organism Qualified Code(s): A41.9 - Sepsis, unspecified organism (2) UTI (urinary tract infection) Current Visit: Yes Status: Acute Assessment and plan: As above Qualifiers: Urinary tract infection type: acute cystitis Hematuria presence: without hematuria Qualified Code(s): N30.00 - Acute cystitis without hematuria (3) Acute blood loss anemia Current Visit: Yes Status: Acute Assessment and plan: 81 y/o M hx of afib, diastolic HF, CAD, GERD, CKD III, hypothyroidism presented with acute on set of hematochezia. 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 Patient was started on warfarin for atrial fibrillation. He had previous massive GI bleed one week ago and was hospitalized at [facility] for five days and given FFP and IVF. After being d/c form [facility] he continued to have rectal bleeding. Patient has had multiple colonoscopies in the past four years for a recurrent polyp in the colon. 2nd to lower GI bleed. Has been given two [facility] hgb stable today at 8.5 He is s/p colonoscopy with rectal lesion excision, POD 2 Continue to monitor Hb (4) DVT prophylaxis Current Visit: Yes Status: Acute Assessment and plan: SCDs,for now Will confirm from surgery when it is safe to restart Coumadin (5) History of hypothyroidism Current Visit: Yes Status: Acute Assessment and plan: controlled. continue levothyroxine (6) Hx of essential hypertension Current Visit: Yes Status: Acute Assessment and plan: controlled. continue valsartan (7) Lower gastrointestinal hemorrhage Current Visit: Yes Status: Acute Assessment and plan: Plan as in acute blood loss anemia (8) CKD (chronic kidney disease) stage 3, GFR 30-59 ml/min Current Visit: Yes Status: Chronic Assessment and plan: Cr stable Renal USS unremarkable (9) Chronic atrial fibrillation Current Visit: Yes Status: Chronic Assessment and plan: controlled. RRR Continue to hold Coumadin. (10) Chronic diastolic heart failure Current Visit: Yes Status: Chronic Assessment and plan: hx of diastolic CHF. Not acute exacerbation Continue lasix po, CXR noted , will continue current dose of lasix (11) Type 2 diabetes mellitus Current Visit: Yes Status: Chronic Assessment and plan: glucose is controlled. continue Q6H accuchecks and SSI. Qualifiers: Diabetes mellitus complication status: without complication Diabetes mellitus truck terminal manager insulin use: with shelter use Qualified Code(s): E11.9 - Type 2 diabetes mellitus without complications; Z79.4 - [facility] (current) use of insulin - Subjective Interval history: 81 Y/O M with PMH of Afib, CHFpEF, CAD, GERD, CKD III, Hypothyroidism Admitted for management of LGIB secondary to rectallesion he is s/p excision of rctal lesion POD2 He had an episode of hypoxemia overnight, requiring 12L of O2 Night hospitalist thought may be due to suspected sleep apnea Blood cultures are pending, will de-escalate based on negativity/microbiology He also has a UTI with Macias-sensitive E.Coli which Cefepime will cover CKD III with Renal function today improved from baseline He has been afebrile, Tmax 100.1 01/07/17 0520 CXR yesterday concerning for atelectasis with possible RLL infiltrate, He also had leukocytosis Antibiotics were escalated to Vanco and Cefepime WBC trending down today He is sen at bedside Spouse is in the room Patient denies new complains he has not had a BM, otherwise he is stable - Constitutional Vitals: Temp Pulse Resp BP Pulse Ox 98.9 F 82 18 126/73 95 01/08/17 07:52 01/08/17 07:52 01/08/17 07:52 01/08/17 07:52 01/08/17 09:09 General appearance: Present: A&O X 3, pleasant, no acute distress - Head Head exam: Present: atraumatic, normocephalic - Eye Eye exam: Present: PERRL, conjuntiva pink, sclera anicteric Pupils: Present: PERRL - Neck Neck exam general surgery: Present: supple, trachea midline. Absent: lymphadenopathy - Respiratory Additional comments: Bilateral rhonchi - Cardiovascular Cardiovascular exam: Present: irregular rhythm, +S1, +S2. Absent: diastolic murmur, gallop, rubs, systolic murmur - GI/Abdominal GI/Abdominal exam: Present: normal bowel sounds, soft, no peritoneal signs. Absent: distended, tenderness - Extremities Exam Extremities exam: Present: pedal edema (trace edema bilaterally), warm, radial pulses palpable and symetrical. Absent: calf tenderness, cyanotic - Neurological Exam Neurological exam: Present: alert, CN II-XII intact, oriented X3, no focal deficits. Absent: pronater drift, facial droop, speech deficit - Skin Skin exam: Present: dry Internal Medicine: Result - Labs CBC & Chem 7: 01/08/17 05:48 01/08/17 05:48 Labs: Short CBC 01/08/17 Range/Units 05:48 WBC 10.1 (4.3-11.1) K/mcL Hgb 8.5 L (12.9-16.9) g/dL Hct 26.4 L (37.5-50.1) % Plt Count 175 (140-400) K/mcL Neutrophils # 7.1 (1.6-8.9) K/mcL BMP 01/07/17 01/08/17 09:04 05:48 Sodium 140 139 Potassium 3.3 L 3.3 L Chloride 107 106 Carbon Dioxide 26 25 BUN 11 14 Creatinine 1.36 H 1.26 H Glucose 181 H 171 H Calcium 7.9 L 7.6 L - ABG Interpretation ABG results: PT/INR, D-dimer PT 12.6 Seconds (9.4-12.1) H 01/02/17 23:50 - Impressions Impressions Retroperitoneum Ultrasound 01/07/17 17:00 IMPRESSION: No evidence of hydronephrosis. Prior Bilateral moderate-size simple cysts. Near complete emptying of the urinary bladder with minimal postvoid residual 17.6 cc. D/ / Ivan Choi MD / Ivan Choi MD Interpreting Provider: Ivan Choi MD Chest X-Ray 01/08/17 08:00 IMPRESSION: Mild perihilar edema with some minimal left basilar atelectasis. D/ / 01/08/2017 07:30:31 Trey Quinones MD / sandra Interpreting Provider: Trey Quinones MD - VTE Documentation of Mechanical Device: Intermittent pneumatic compression device Consult Discharge Plan - Plan Referrals: Major Gonsalves DO [Primary Care Provider] -
[2017-01-08] MEDS ORDERED: *HR* OxyCODONE/APAP 5/325 TABLET PO PRN (10:54)
--- NOTE | 2017-01-08 13:54 | General Surgery Progress Note ---
Date of Encounter: 01/08/17 Time of Encounter: 13:30 - Assessment and Plan (1) Lower gastrointestinal hemorrhage Current Visit: Yes Status: Acute POD #2 from a transanal rectal excision of rectal lesion Continue cardiac diet Supportive care Hgb stable 8.5>9.1>8.5 Pathology pending Continue to hold coumadin- consider starting 01/09/17 in at 1800 (2) Acute blood loss anemia Current Visit: Yes Status: Acute hgb stable 8.5>9.1>8.5 (3) Acute kidney injury superimposed on chronic kidney disease Current Visit: Yes Status: Acute Remove guzmán catheter today Strict I&Os urine culture pending US ordered per hospitalist Avoid nephrotoxic medications- patient on vancomycin per hospitalist Patient has had 2 doses of his medications for BPH (4) Chronic atrial fibrillation Current Visit: Yes Status: Chronic May consider restarting coumadin 01/09/17 at 1800- discussed with Dr. Mancuso (5) DVT prophylaxis Current Visit: Yes Status: Acute EPCDs to bilteral lower extremities for DVT prophylaxis Out of bed to chair with assistance TID Subjective Patient reports: no new complaints, feels better, tolerating a regular diet, flatus, bowel movement, afebrile Objective Vital Signs - Last 8 Hours Temp Pulse Resp BP Pulse Ox 01/08/17 11:07 97.8 F 95 16 141/67 95 01/08/17 09:09 95 01/08/17 07:52 98.9 F 82 18 126/73 95 Intake and Output 01/07/17 01/08/17 01/08/17 23:59 07:59 15:59 Intake Total 499 / 499 200 / 200 100 / 100 Output Total 650 / 650 450 / 450 100 / 100 Balance -151 / -151 -250 / -250 0 / 0 Intake: IV Fluids 499 / 499 100 / 100 Maxipime 1,000 MG In 100 / 100 100 / 100 Dextrose 5% (Minibag+) 100 ML 100 ML @ 200 mls/ hr IVPB Q12HR [facility] Rx#: [id number] Vancocin 2,000 MG In 399 / 399 Dextrose 5% 500 ML @ 250 mls/hr IVPB Q24H [facility] Rx#: [id number] Oral 0 / 0 200 / 200 0 / 0 Output: Urine 150 / 150 250 / 250 Catheter 500 / 500 200 / 200 100 / 100 Other: Weight 118.983 kg Blood Glucose* 214 204 218 Patient Weight 01/08/17 23:59 Weight 118.983 kg - General physical appearance well developed, well nourished, no distress, no pain - Eyes normal ocular movement - ENT normal mucosa, atraumatic, normocephalic - Neck Neck exam: trachea midline - Respiratory normal respiratory effort, clear to auscultation - Cardiovascular Cardiovascular exam: Present: irregular rhythm (atrial fibrillation) - Abdomen Abdomen: Present: bowel sounds present, soft, non tender - Genitourinary other (guzmán catheter to SD with clear, yellow urine (550ml noted since midnight )) - Rectum normal sphincter tone, other (ecchymosis noted) - Neurologic CN 2-12 grossly intact - Psychiatric oriented to time, oriented to person, oriented to place, speech is normal, memory intact - Labs 01/08/17 05:48 01/08/17 05:48 Diabetes panel 01/08/17 Range/Units 05:48 Sodium 139 (136-145) mEq/L Potassium 3.3 L (3.5-4.5) mEq/L Chloride 106 (98-109) mEq/L Carbon Dioxide 25 (19-29) mEq/L BUN 14 (8-26) mg/dL Creatinine 1.26 H (0.72-1.25) mg/dL Glucose 171 H (70-99) mg/dL Calcium 7.6 L (8.6-10.8) mg/dL Calcium panel 01/08/17 Range/Units 05:48 Calcium 7.6 L (8.6-10.8) mg/dL Pituitary panel 01/08/17 Range/Units 05:48 Sodium 139 (136-145) mEq/L Potassium 3.3 L (3.5-4.5) mEq/L Chloride 106 (98-109) mEq/L Carbon Dioxide 25 (19-29) mEq/L BUN 14 (8-26) mg/dL Creatinine 1.26 H (0.72-1.25) mg/dL Glucose 171 H (70-99) mg/dL Calcium 7.6 L (8.6-10.8) mg/dL Adrenal panel 01/08/17 Range/Units 05:48 Sodium 139 (136-145) mEq/L Potassium 3.3 L (3.5-4.5) mEq/L Chloride 106 (98-109) mEq/L Carbon Dioxide 25 (19-29) mEq/L BUN 14 (8-26) mg/dL Creatinine 1.26 H (0.72-1.25) mg/dL Glucose 171 H (70-99) mg/dL Calcium 7.6 L (8.6-10.8) mg/dL - Imaging Chest x-ray: report reviewed Additional Studies: Retroperitoneum Ultrasound 01/07/17 17:00 IMPRESSION: No evidence of hydronephrosis. Prior Bilateral moderate-size simple cysts. Near complete emptying of the urinary bladder with minimal postvoid residual 17.6 cc. D/ / Ivan Choi MD / Ivan Choi MD Interpreting Provider: Ivan Choi MD Chest X-Ray 01/08/17 08:00 IMPRESSION: Mild perihilar edema with some minimal left basilar atelectasis. D/ / 01/08/2017 07:30:31 Trey Quinones MD / sandra Interpreting Provider: Trey Quinones MD - VTE Documentation of Mechanical Device: Intermittent pneumatic compression device Consult Discharge Plan - Plan Referrals: Major Gonsalves DO [Primary Care Provider] - - Attending Attestation I examined this patient and my medical decision-making was reviewed with the GEOSPATIAL ENGINEER/PA/Advanced Practice Nurse/Resident Physician. I agree with the documented findings, disposition and treatment plan as described except to the extent set forth below.
[2017-01-08] MEDS ORDERED: Vancomycin 1,750 MG in D5% in Water 500 ML IVPB SCH (16:00)
[2017-01-08] MEDS ORDERED: Vancomycin 1,500 MG in D5% in Water 250 ML IVPB SCH (16:00)
[2017-01-08] MEDS: Latanoprost 2.5 ML BOTTLE BOTH EYES SCH (20:25)
[2017-01-08] MEDS ORDERED: Insulin DETEMIR 100 UNIT/ML X5UNITS SQ SCH (21:00)
[2017-01-09 05:55] LABS: Basophils # 0.1 K/mcL (0.0-0.2); Basophils % 0.6 %; Eosinophils # 0.3 K/mcL (0.0-0.6); Hematocrit 26.7 % (37.5-50.1); Hemoglobin 8.5 g/dL (12.9-16.9); Immature Granulocytes % 0.5 % (0-4); Lymphocytes # 1.8 K/mcL (0.6-4.6); Lymphocytes % 17.6 %; Mean Corpuscular HGB Conc 31.8 g/dL (31.6-35.5); Mean Corpuscular Hemoglobin 28.6 pg (28.0-33.3); Mean Corpuscular Volume 89.9 fL (83.0-100.0); Mean Platelet Volume 11.8 fL (9.4-12.4); Monocytes # 1.2 K/mcL (0.0-1.3); Monocytes % 11.1 %; Neutrophils # 6.9 K/mcL (1.6-8.9); Platelet Count 188 K/mcL (140-400); Red Blood Count 2.97 M/mcL (4.19-5.50); Red Cell Distribution Width 13.5 % (11.5-14.5); Segmented Neutrophils % 67.2 %
[2017-01-09 06:12] LABS: BUN/Creatinine Ratio 12 (6-26); Blood Urea Nitrogen 17 mg/dL (8-26); Calcium 7.6 mg/dL (8.6-10.8); Carbon Dioxide 27 mEq/L (19-29); Chloride 105 mEq/L (98-109); Glucose 140 mg/dL (70-99); Osmolality,Calculated 292 (280-300); Potassium 3.3 mEq/L (3.5-4.5); Sodium 139 mEq/L (136-145); eGFR For African Americans > 60 (> 60); eGFR For Non-African Americans 50 (> 60)
[2017-01-09] MEDS: Cefepime HCl 1,000 MG in D5% in Water (Mini-Bag+) 100 ML IVPB SCH (06:28)
[2017-01-09] MEDS: Valsartan 160 MG TABLET PO SCH (08:12)
[2017-01-09] MEDS: Furosemide 40 MG TABLET PO SCH (08:12)
[2017-01-09] MEDS: Finasteride 5 MG TABLET PO SCH (08:12)
[2017-01-09] MEDS: Insulin LISPRO 300 UNITS/3 ML VIAL SQ SCH ×2 (08:23→12:13)
--- NOTE | 2017-01-09 08:55 | Discharge Summary ---
Date of Encounter: 01/09/17 Time of Encounter: 08:51 - Discharge Diagnosis (1) Superficial venous thrombosis of right upper extremity Priority: Primary Status: Acute (2) Sepsis Priority: Primary Status: Ruled-out Qualifiers: Sepsis type: sepsis due to unspecified organism Qualified Code(s): A41.9 - Sepsis, unspecified organism (3) UTI (urinary tract infection) Priority: Primary Status: Acute Qualifiers: Urinary tract infection type: acute cystitis Hematuria presence: without hematuria Qualified Code(s): N30.00 - Acute cystitis without hematuria (4) Acute blood loss anemia Priority: Primary Status: Acute (5) DVT prophylaxis Priority: Primary Status: Acute (6) History of hypothyroidism Priority: Secondary Status: Chronic (7) Hx of essential hypertension Priority: Secondary Status: Chronic (8) Lower gastrointestinal hemorrhage Priority: Primary Status: Resolved (9) CKD (chronic kidney disease) stage 3, GFR 30-59 ml/min Priority: Secondary Status: Chronic (10) Chronic atrial fibrillation Priority: Secondary Status: Chronic (11) Chronic diastolic heart failure Priority: Secondary Status: Chronic (12) Type 2 diabetes mellitus Priority: Secondary Status: Chronic Qualifiers: Diabetes mellitus complication status: without complication Diabetes mellitus half-way insulin use: with terminal gauger use Qualified Code(s): E11.9 - Type 2 diabetes mellitus without complications; Z79.4 - correction (current) use of insulin - Discharge Medications Prescriptions: Cefdinir [Omnicef] 300 mg PO BID #8 capsule Warfarin [Coumadin] 5 mg PO 1800 #10 tablet Home Medications: Allopurinol [Zyloprim 300 MG] 300 mg PO DAILY 01/03/17 [History] Digoxin [Lanoxin] 0.125 mg PO MOWEFR 01/03/17 [History] Docusate [Colace] 100 mg PO BID 01/03/17 [History] Ezetimibe 10 mg PO DAILY 01/03/17 [History] Finasteride [Proscar] 5 mg PO DAILY 01/03/17 [History] Furosemide [Lasix] 40 mg PO BID 01/03/17 [History] Insulin ASPART [Novolog Flexpen] 12 unit SQ TID 01/03/17 [History] Insulin DETEMIR [Levemir Flextouch] 50 unit SQ QAM 01/03/17 [History] Insulin DETEMIR [Levemir] 45 unit SQ HS 01/03/17 [History] Latanoprost [Xalatan] 1 drop BOTH EYES HS 01/03/17 [History] Levothyroxine [Synthroid] 150 mcg PO DAILY 01/03/17 [History] Lidocaine [Recticare] 1 appl RC Q6H PRN 01/03/17 [History] Metolazone 2.5 mg PO QAM 01/03/17 [History] Metoprolol [Lopressor] 50 mg PO BID 01/03/17 [History] OxyCODONE/APAP 5/325 [Percocet 5/325 MG] 1 tab PO Q4HR PRN 01/03/17 [History] Potassium Chloride [K-Tab ER] 40 meq PO BID 01/03/17 [History] Tamsulosin [Flomax] 0.4 mg PO HS 01/03/17 [History] Valsartan [Diovan] 320 mg PO DAILY 01/03/17 [History] Acetaminophen [Tylenol] 650 mg PO Q6HR PRN #0 tablet 01/09/17 [Rx] Cefdinir [Omnicef] 300 mg PO BID #8 capsule 01/09/17 [Rx] Warfarin [Coumadin] 5 mg PO 1800 #10 tablet 01/09/17 [Rx] Allergies/Adverse Reactions: Allergies Tetracycline Adverse Reaction (Verified 01/03/17 03:06) Hives Procedures/tests Complete & Pending: Procedures Performed prior 72 hours Category Date Time Status Retroperitoneal Ultrasound - Complete [US Exams 01/07/17 17:00 Completed retroperitoneal comp] [US] Stat ECG 12 lead ECG [ECG] Stat Y 01/06/17 20:06 Completed Date of admission: 01/03/17 08:06 Primary care physician: Major Adams Consults: 01/03/17 10:23 Consult to Surgery [CONS] Routine Consulting Provider: Azeem Pearson Reason for Consult: lower GI bleed Time Notified: 04:00 Call Completed: Yes 01/07/17 09:01 Consult to Laundry Worker [CONS] Routine Reason for SW Consult: evaluation 01/08/17 11:37 Consult to Physical Therapy [CONS] Routine Comment: Evaluate, develop and implement POC OT [Consult to Occupational Therapy] [CONS] Routine Comment: Evaluate, develop and implement POC Discharging clinician: Hal Marie Anticipated date of discharge: 01/09/17 - Patient Status Disposition: Home, Self-Care Condition: Good Functional capacity at discharge: independent ambulation Overall status at discharge: patient is progressing back to baseline - Discharge Instructions Follow Up With: Barrett Preciado DO [Resident] - 01/14/17 12:45 pm Forms: ED Satisfaction Letter - Diet and Activity Activity: resume usual activities as tolerated, wear oxygen at all times Diet: diabetic diet, low fat, low cholesterol, low salt diet Interval History: 81 y/o M hx of afib, diastolic HF, CAD, GERD, CKD III, hypothyroidism presented with acute on set of hematochezia. 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 Patient was started on warfarin for atrial fibrillation. He had previous massive GI bleed one week ago and was hospitalized at [facility] for five days and given FFP and IVF. After being d/c form [facility] he continued to have rectal bleeding. Patient has had multiple colonoscopies in the past four years for a recurrent polyp in the colon. Hospital course: He was admitted and transfused with RBC X2. Surgery was consulted for evaluation of LGIB. Colonoscopy revealed a rectal mucosa lesion that was excised by Surgery His HB has remained stable and he has not required any more blood transfusion. Hgb stable 8.5>9.1>8.5 Work up on admission also revealed E.Coli pansensitive UTI for which he was started on Ceftriaxone On POd1, he developed a low grade fever as well as leukocytosis, blood culture, CXR were done. His antibiotics were broadened to Cefepime and Vancomycin Today is POD 3, patient has been afebrile His Hb/Hct has been stable and his blood cultures are preliminary no growth His other work up including Renal USS, ECHO were at baseline. His creatinine during this admission ranged from 1.11-1.42, his baseline is 1.5- 1.7, stable . He is seen at bedside with his spouse, with no new complains However, examination revealed a swollen , red and tender RUE around where his IV cannula was placed, hence a Doppler USS was ordered which showed a venous thrombosis of his superficial cephalic vein. Patient has Afib and on Coumadin, there will be no intervention for the SVT of RUE. His pain is minimal and swelling decreased through the day He is stable to be discharged home today on his chronic home meds. In addition, I confirmed from surgery regarding restarting Coumadin and Dr. Bailey agreed he could be restarted today. He is also given prescription for OMnicef to complete 7-10 days of therapy His chronic medical conditions were otherwise stable throughout Follow up in INR clinic, Follow up with Cardiology, Surgery and PCP Plan of care is discussed with patient and his at the bedside, verbalized understanding - Time Spent with Patient Total time spent providing and/or coordinating discharge services: Greater than 30 minutes (40 minutes spent on encountr with patient and family, education about hospital course and discharge plan, chart review , prescriptions , documentation) - Constitutional Vitals: Temp Pulse Resp BP Pulse Ox 98.2 F 92 16 145/80 94 L 01/09/17 08:05 01/09/17 08:05 01/09/17 08:05 01/09/17 08:05 01/09/17 08:30 General appearance: Present: A&O X 3, pleasant, no acute distress, obese - Head Head exam: Present: atraumatic, normocephalic - Eye Eye exam: Present: PERRL, conjuntiva pink, sclera anicteric Pupils: Present: PERRL - Neck Neck exam general surgery: Present: supple, trachea midline. Absent: lymphadenopathy - Respiratory Respiratory exam: Present: CTAB. Absent: accessory muscle use, rales, rhonchi, wheezes - Cardiovascular Cardiovascular exam: Present: irregular rhythm, +S1, +S2. Absent: diastolic murmur, gallop, rubs, systolic murmur, tachycardia - GI/Abdominal GI/Abdominal exam: Present: normal bowel sounds, soft, no peritoneal signs. Absent: distended, tenderness - Extremities Exam Extremities exam: Present: warm, radial pulses palpable and symetrical. Absent : calf tenderness, cyanotic, pedal edema Additional comments: RUE redness and swelling from IV infusion site - Neurological Exam Neurological exam: Present: alert, CN II-XII intact, normal gait, oriented X3, no focal deficits. Absent: pronater drift, facial droop, speech deficit - Skin Skin exam: Present: dry - VTE Documentation of Mechanical Device: Intermittent pneumatic compression device
[2017-01-09] MEDS ORDERED: Cefdinir 300 MG CAPSULE PO SCH (09:00)
[2017-01-09 11:56] VITALS: BP 145/75
[2017-01-09] MEDS ORDERED: Aminoglycoside Consult 1 EACH MC ONE (16:22)
[2017-01-09] MEDS ORDERED: *HR* Warfarin 5 MG TABLET PO SCH (18:00)
--- NOTE | 2017-01-09 18:20 | Operative Note ---
Date of procedure: 01/06/17 Pre-op diagnosis: rectal mass Post-op diagnosis: same Procedure: Exam under anesthesia with trans-anal excision of rectal mass Anesthesia: YURIY Surgeon: Dago Mancuso Estimated blood loss (cc): 15 Condition: stable Disposition: floor Procedure in Detail: After informed consent, the patient was taken to the operating room placed in the supine position. After adequate sedation anesthesia the patient was then placed in a prone position. The patient was placed in a jackknife position thereafter. His buttocks was prepped and draped. After doing exam under anesthesia is able to identify the rectal lesion which was hard and firm. There were rolled edges with a fungating type sessile lesion. This was resected with electrocautery. It was full thickness of the rectal wall. Once it was fully removed the mucosa was closed with an 0 Vicryl suture in running fashion. I identified at that hemostasis was adequate. A Gelfoam plug was placed in the anal canal. The area was injected with half percent Marcaine. He was returned recovery room in stable condition.
--- NOTE | 2017-01-10 12:41 | Venous Imaging Report ---
UE Venous Duplex Patient Name:Marcos Haynes Order Number:[id number] Procedure Date:01/09/2017 Date:4Age:81 yrs Gender:Male Location:[facility] Room #: 3A51 Middleware Systems Architect:Michelle Sheppard Referring MD:Hal Marie MD aerosol line operator:Major Gonsalves DO Reading MD:Ananda Salter MD Primary Indications:r/o DVT Secondary Indications: Risk Factors Yes/No Anticoagulants Impressions: Upper extremity abnormal superficial exam: right Cephalic Upper Arm vein acute thrombosis. Recommendations: Test completed on 01/09/2017 at 2:42:00 pm. Critical findings reported to Dr. Marie by phone at 3:40:00 pm on 01/09/2017 by Michelle Sheppard. Findings Venous Duplex Results: Right: There is an acute occlusive thrombus seen in the right cephalic upper arm. Prior Study: No prior study available for comparison. Upper Extremity Venous Duplex Side Vein Compress Spontaneous Flow Augment Right Jugular Normal Yes Phasic Yes Right Subclavian Normal Yes Phasic Yes Right Axillary Normal Yes Phasic Yes Right Brachial Normal Yes Phasic Yes Right Cephalic Upper Arm None no Continuous no Right Cephalic Forearm Normal Yes Phasic Yes Right Basilic Normal Yes Phasic Yes Right Radial Normal Yes Phasic Yes Right Ulnar Normal Yes Phasic Yes Left Subclavian Normal Yes Phasic Yes Updated by Ananda Salter MD on 01/10/2017 12:37:02 PM electronically signed on 01/10/2017 12:37:26 PM with status of Final
== END 2017-01-09 16:23 | disposition home or self-care (01) | DRG 378 ==
LOC: 3ANU 23:07 → EMEROO 23:07 → 3ANU 01-03 03:00 → SUATTDRO 01-03 08:06
PROVIDERS: ADMIT Hospitalist; ATTEND Internal Medicine
PROC: ENDOCBX (2017-01-05 09:00)
PROC: [UNRECOGNIZED PROCEDURE] (2017-01-06 17:30)